=== PATIENT | female | born 1995 | race Caucasian/White ===

== ENCOUNTER 2018-05-08 12:01 | Emergency (ER) | payer BC, OTHER ==
--- OUTSIDE RECORDS SUMMARY | 2018-05-08 12:02 | XMS REPORT | Encounter Summary ---
:1995 Author Reason for Visit Medical Complaint Instructions 1. Exposure to Chlamydia trachomatis CT + NG RNA, PCR, unspecified specimen azithromycin 500 mg tablet Discussion Note: None recorded.Patient educational handouts: No information available. Plan of Care Reminders Provider Appointments None recorded. Lab CT + NG RNA, [facility] PCR, Unspecified Specimen 12/11/2017 Referral None recorded. Procedures None recorded. Surgeries None recorded. Imaging None recorded. Medications Name Start Date azithromycin 500 mg tablet 2 tablets (1 gm) x 1 po Medications Administered None recorded. Vitals Height Weight BMI Blood Pressure 5 ft 2 in 125 lbs 22.9 kg/m2 (1) 127/97 mm[Hg] (2) 136/88 mm[Hg] Lab Results None recorded. Allergies Code Code System Name Reaction Severity Status Onset NKDA Problems None recorded. Procedures None recorded. Vaccine List None recorded. Social History Smoking Status Former Smoker Past Encounters 12/11/2017 Exposure to Chlamydia Trachomatis DIVYA ReynagaC: [address] [place] [address], [address], [place] [address], Ph. History of Present Illness [id number] Reported By: Patient HPI: Location: ; no pain. Context: sexually active, possible/known exposure to STD, prior history of STDs; boyfriend only tested with chlamydia positive. gonorrhea was negative. Associated Symptoms: no fever/chills, no flank pain, no jaundice, no blood in the urine, no pain during urination, no vaginal discharge, no urgency, no blisters on genitals, no rash on genitals, no muscle aches, no headache Notes: was told by boyfriend yesterday that he had chlamydia via blood test. Pt wants to be tested. Hx of PID due to chlamydia. Pt did not want to be treated for gonorrhea now. Review of Systems Basic Reported By: Patient Constitutional: Constitutional: no fever Eyes: Eyes: no eye complaints Kqyv-Ucbu-Fcoun-Throat: Ears: no ear complaints. Nose: no nose/sinus problems. Mouth/Throat: no sore throat, no bleeding gums, no mouth complaints, no teeth problems Cardiovascular: Cardiovascular: no chest pain, no shortness of breath, no known heart murmur Respiratory: Respiratory: no cough, no wheezing, no shortness of breath Gastrointestinal: Gastrointestinal: no abdominal pain, no vomiting / diarrhea Genitourinary: Genitourinary: no urinary complaints, no discharge Musculoskeletal: Musculoskeletal: no muscle aches, no muscle weakness, no arthralgias/joint pain, no back pain Skin: Skin: no abnormal / changing mole, no jaundice, no rashes Neurologic: Neurologic: no loss of consciousness, no weakness, no numbness, no seizures, no dizziness, no headaches Physical Exam Adult Basic, Adult Female Complete Reported By: Patient Constitutional: General Appearance: healthy-appearing, well-nourished, well-developed. Level of Distress: NAD. Ambulation: ambulating normally Psychiatric: Mental Status: active and alert. Orientation: to time, to place, to person Eyes: Lids and Conjunctivae: non-injected, no discharge, no pallor. Pupils: PERRLA. Corneas: grossly intact. EOM: EOMI. Lens: clear. Sclerae: non-icteric. Vision: acuity grossly intact Ijl-Jlug-Zclpd-Throat: Ears: no lesions on external ear, no outer ear tenderness, EACs clear, TMs clear. Hearing: no hearing loss. Nose: no lesions on external nose, nares patent, no septal deviation, nasal passages clear, no sinus tenderness, no nasal discharge. Lips, Teeth, and Gums: no mouth or lip ulcers, no bleeding gums, normal dentition. Oropharynx: moist mucous membranes, no erythema, no exudates, tonsils not enlarged Neck: Neck: supple, trachea midline, no masses, FROM. Lymph Nodes: no cervical LAD, no supraclavicular LAD, no inguinal LAD. Thyroid: no enlargement, non-tender, no nodules Lungs: Respiratory effort: no dyspnea, no tachypnea, no use of accessory muscles, no intercostal retractions. Percussion: no dullness, flatness, or hyperresonance. Auscultation: breath sounds normal Cardiovascular: Heart Auscultation: RRR, no murmurs Musculoskeletal:: Joints, Bones, and Muscles: normal movement of all extremities Neurologic: Gait and Station: normal gait, normal station Skin: Inspection and palpation: no rash, no lesions, no ulcer, no abnormal nevi, no induration, no nodules, good turgor, no jaundice. Nails: normal Back: Thoracolumbar Appearance: normal curvature Abdomen: Bowel Sounds: normal. Inspection and Palpation: soft, non-distended, no tenderness, no guarding, no rebound tenderness, no masses, no CVA tenderness. Liver: non-tender, no hepatomegaly. Spleen: non-tender, no splenomegaly. Hernia: none palpable
--- OUTSIDE RECORDS SUMMARY | 2018-05-08 12:02 | XMS REPORT | Encounter Summary ---
[...] 12/11/2017 Exposure to Chlamydia Trachomatis DIVYA ReynagaC: [address] [place] [address], [address], [place] [address], Ph. History of Present Illness [id number] Reported By: Patient HPI: Location: ; no [...] no fever Eyes: Eyes: no eye complaints Ghkr-Gnxw-Nxcjk-Throat: Ears: no ear complaints. Nose: no nose/sinus [...] clear. Sclerae: non-icteric. Vision: acuity grossly intact Cgy-Vxkk-Mplxj-Throat: Ears: no lesions on external ear, no [...]
--- OUTSIDE RECORDS SUMMARY | 2018-05-08 12:02 | XMS REPORT | Continuity of Care Document ---
:1995 Author Organization Interface Problems Problem Status Onset Classification Date Comments Source Date Reported Exposure to 12/12/19 Diagnosis 12/11/2017 [facility] Chlamydia 18 trachomatis Medications Medication Details Route Status Patient Ordering Order Source Instructions Provider Date Azithromycin azithromycin Active [facility] 500 MG Oral 500 mg tablet Tablet 2 tablets (1 gm) x 1 po Allergies, Adverse Reactions, Alerts Substance Category Reaction Severity Reaction Status Date Comments Source type Reported Immunizations Immunization Date Given Site Status Last Updated Comments Source Results Order Results Value Reference Date Interpretation Comments Source Name Range Vital Signs Vital Sign Value Date Comments Source Diastolic (mm Hg) 88 12/11/2017 [facility] Height 62 12/11/2017 [facility] Systolic (mm Hg) 136 12/11/2017 [facility] Weight 125 12/11/2017 [facility] Encounters Location Location Encounter Encounter Reason Attending ADM DC Status Source Details Type Number For Provider Date Date Visit ADRI Dudley [id number] 12/11 [facility]o [id number] - PA-C: [id number] [facility] [address] [address] , Ph. ADRI Dudley [id number] 12/11 [facility] [id number] - PA-C: [id number] [facility] [address], [place] [address] , Ph. Procedures Procedure Code Date Perfomer Comments Source
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
== END 2018-05-08 13:25 | disposition home or self-care (01) ==
LOC: ER 12:01
DX: S16.1XXA Strain of muscle, fascia and tendon at neck level, initial encounter (principal); V49.40XA Driver injured in collision with unspecified motor vehicles in traffic accident, initial encounter
CPT/HCPCS: 70450; 72125; 99284

== ENCOUNTER 2019-01-25 11:29 | Emergency (ER) | payer BC, SELFPAY ==
[2019-01-25 12:26] LABS: Urine Bacteria <20 /HPF (<20); Urine Culture Reflex Order NOT NEEDED; Urine RBC NONE SEEN /HPF (NONE SEEN)
[2019-01-25 12:42] LABS: Urine Blood NEGATIVE (NEG); Urine Glucose NEGATIVE (NEG); Urine Protein NEGATIVE (NEG); Urine Specific Gravity 1.015 (1.005-1.030)
[2019-01-25] MEDS ORDERED: NA CHLORIDE 0.9% 1,000 ML ONE (12:44)
[2019-01-25 12:48] LABS: Absolute Lymphocytes (CBC) 1.3 K/uL (0.7-4.9); Basophils % 0.3 % (0-1.3); Hematocrit 42.2 % (36.0-45.0); Lymphocytes % 11.4 % (15.3-44.8); MPV 10.3 fL (7.6-11.3); RBC Red Blood Cell Count 4.88 M/uL (3.86-4.86)
[2019-01-25] MEDS ORDERED: ONDANSETRON 4 MG/2 ML VIAL ONE (12:53)
[2019-01-25 13:06] LABS: Bilirubin Direct 0.1 mg/dL (0-0.2); Bilirubin Total 0.6 mg/dL (0.2-1.0); Potassium 3.4 mmol/L (3.5-5.1)
[2019-01-25] MEDS ORDERED: KETOROLAC 30 MG/ML INJ ONE (13:57)
--- NOTE | 2019-01-25 15:22 | RAD REPORT ---
EXAM DESCRIPTION: CT - Abdomen Pelvis W Contrast - 01/25/2019 2:54 pm CLINICAL HISTORY: ABD PAIN COMPARISON: CT imaging December 2016 TECHNIQUE: Biphasic, helical CT imaging of the abdomen and pelvis was performed following 100 ml non -ionic IV contrast. Oral contrast was given. All CT scans are performed using dose optimization technique as appropriate and may include automated exposure control or mA/KV adjustment according to patient size. FINDINGS: No suspicious findings in the lung bases. The liver, spleen, and pancreas show no suspicious findings. Gallbladder and biliary tree are also wi thout suspicious finding. Both kidneys show lobulated contour. Areas of cortical thinning are present. There is some subtle het erogeneity of the enhancement pattern. This pattern is very similar to the December 2016 study. Findin gs are not convincing for pyelonephritis but can be correlated with UA findings. No urinary bladder w all thickening or enhancement. No solid mass of the parenchyma. No bladder calculus or other intralum inal filling defect. No adrenal abnormalities. No stomach or small bowel abnormality. The appendix is normal. Large stool volume distends the cecum, ascending colon and transverse colon. There is moderate stool volume in the left side colon. Colon w all thickening or mass not identified. Normal size uterus is present. IUD is in place appearing well positioned in the fundus. Left ovary is anteriorly positioned in the upper adnexae. There appears to be a 12 millimeter involuting cyst. Com plex cystic structure in the midline and right adnexa is present. This is not new but is slightly lar luke than the prior study. This is most likely a chronic right-sided hydrosalpinx. Emerson do not appear abnormally thickened or edematous. Pyosalpinx is possible but probably unlikely given the chronicity of this structure. Normal ovarian tissue is difficult to identify. Free fluid is present in the cul de sac within physiologic limits. No free air or pneumatosis. No hernia, mass or bulky lymphadenopathy. No suspicious bony findings. IMPRESSION: Patient has a chronic right-sided hydrosalpinx. Pyosalpinx is not excluded but felt to b e low unlikely given the chronicity of this structure and the absence of wall thickening or enhanceme nt. Involuting 12 millimeter left ovarian cyst. The left ovaries position anterior pelvis Appendix is normal. No acute GI process confirmed. Patient does have a large stool volume distending the right-side colon and transverse colon. Lobulated kidneys with a slightly heterogeneous enhancement pattern. This is not substantially differ ent from 2017. Pyelonephritis is not suspected without supporting clinical and laboratory findings. C ystitis is not suspected.
--- NOTE | 2019-01-25 16:02 | ER ---
Nurse's Notes [facility] Name: Yokasta Duncan Age: 23 yrs Sex: Female : 1995 Arrival Date: 01/25/2019 Time: 11:32 Bed 19 Private MD: Diagnosis: Hydrosalpynx;Follicular cyst of ovary;Lower abdominal pain, unspecified;Constipation Presentation: 01/25 11:57 Presenting complaint: Patient states: I began having lower abd pain last night. la1 Transition of care: patient was not received from another setting of care. Onset of symptoms was January 25, 2019. Risk Assessment: Do you want to hurt yourself or someone else? Patient reports no desire to harm self or others. Initial Sepsis Screen: Does the patient meet any 2 criteria? No. Patient's initial sepsis screen is negative. Does the patient have a suspected source of infection? No. Patient's initial sepsis screen is negative. Care prior to arrival: None. 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 - Social history:: Smoking status: Patient/guardian denies using tobacco. - Ebola Screening: : No symptoms or risks identified at this time. Screenin:40 Abuse screen: Denies threats or abuse. Nutritional screening: No deficits noted. em Tuberculosis screening: No symptoms or risk factors identified. Fall Risk None identified. Assessment: 12:20 General: Appears in no apparent distress. comfortable, Behavior is calm, cooperative, em Denies fever. Pain: Complains of pain in right lower quadrant and left lower quadrant Pain currently is 8 out of 10 on a pain scale. Pain began 1 day ago. Neuro: Level of Consciousness is awake, alert, obeys commands, Oriented to person, place, time, situation, Appropriate for age. Cardiovascular: Capillary refill < 3 seconds Patient's skin is warm and dry. Respiratory: Airway is patent Respiratory effort is even, unlabored, Respiratory pattern is regular, symmetrical. GI: Abdomen is flat, Bowel sounds present X 4 quads. Abd is soft X 4 quads Abdomen is tender to palpation in right lower quadrant and left lower quadrant Reports lower abdominal pain, Patient currently denies diarrhea, nausea, vomiting. : Denies burning with urination. Derm: Skin is intact, is healthy with good turgor, Skin is pink, warm \T\ dry. Musculoskeletal: Capillary refill < 3 seconds, Range of motion: intact in all extremities. 13:15 Reassessment: finished drinking PO contrast, tolerated well. em 14:00 Reassessment: Patient appears in no apparent distress at this time. Patient and/or em family updated on plan of care and expected duration. Pain level reassessed. Patient is alert, oriented x 3, equal unlabored respirations, skin warm/dry/pink. request something for pain, request not to have narcotics due to mothers addiction to them, educated pt that several dosages of medication would not cause pt to become addicted, provider notified. 14:31 Reassessment: rates pain 4/10 Patient states feeling better. Patient states symptoms em have improved. 15:20 Reassessment: Patient appears in no apparent distress at this time. Patient and/or em family updated on plan of care and expected duration. Pain level reassessed. Patient is alert, oriented x 3, equal unlabored respirations, skin warm/dry/pink. pending CT results, reports being hungry, advised not to eat or drink until after results. 16:14 Reassessment: Patient appears in no apparent distress at this time. Patient and/or em family updated on plan of care and expected duration. Pain level reassessed. Patient is alert, oriented x 3, equal unlabored respirations, skin warm/dry/pink. pending completion of IV fluids. Vital Signs: 11:58 BP 121 / 74; Pulse 102; Resp 16; Temp 99.6; Pulse Ox 100% on R/A; Weight 54.43 kg; la1 Height 5 ft. 2 in. (157.48 cm); 13:00 BP 133 / 82; Pulse 81; Resp 18; Pulse Ox 100% on R/A; Pain 8/10; em 14:27 BP 140 / 90; Pulse 96; Resp 16; Pulse Ox 100% on R/A; Pain 4/10; em 15:50 BP 126 / 79; Pulse 94; Resp 18; Temp 98.4(O); Pulse Ox 100% on R/A; Pain 5/10; em 16:48 BP 124 / 84; Pulse 94; Resp 18; Pulse Ox 100% on R/A; em 11:58 Body Mass Index 21.95 (54.43 kg, 157.48 cm) la1 ED Course: 11:32 Patient arrived in ED. rg4 11:42 [facility]C [facility] snw 11:42 Vik Soto MD is Attending Physician. snw 11:58 Triage completed. la1 11:58 Arm band placed on left wrist. la1 12:01 Douglas Patel LVN is Primary Nurse. em 12:20 Patient has correct armband on for positive identification. Placed in gown. Bed in low em position. Call light in reach. Adult w/ patient. Pulse ox on. NIBP on. 12:40 Initial lab(s) drawn, by me, sent to lab. Inserted saline lock: 22 gauge in right em antecubital area, using aseptic technique. Blood collected. 14:53 CT completed. Patient tolerated procedure well. Patient moved back from CT. mw3 16:46 No provider procedures requiring assistance completed. IV discontinued, intact, em bleeding controlled, No redness/swelling at site. Pressure dressing applied. Administered Medications: 12:49 Drug: NS 0.9% 1000 ml Route: IV; Rate: 100 ml/hr; Site: right antecubital; em 16:48 Follow up: IV Status: Completed infusion; IV Intake: 1000ml em 12:56 Drug: Zofran 4 mg Route: IVP; Site: right antecubital; tw2 13:15 Follow up: Response: No adverse reaction; Nausea is decreased em 14:07 Drug: TORadol - Ketorolac 15 mg Route: IVP; Site: right antecubital; tw2 14:27 Follow up: Response: No adverse reaction; Pain is decreased em 16:04 Not Given (Duplicate Order): Miralax 17 grams PO once; mix into 4-8 oz. of any em hot/cold/room temp. beverage and drink immediately 16:09 Drug: Miralax 17 grams Route: PO; em 16:46 Follow up: Response: No adverse reaction em Intake: 16:48 IV: 1000ml; Total: 1000ml. em Outcome: 16:02 Discharge ordered by . snw 16:47 Discharged to home ambulatory, with significant other. em 16:47 Condition: good 16:47 Discharge instructions given to patient, significant other, Instructed on discharge instructions, follow up and referral plans. medication usage, Demonstrated understanding of instructions, follow-up care, medications, Prescriptions given X 2. 16:50 Patient left the ED. em Signatures: Leidy Goetz, INSPECTOR AND HAND PACKAGER-C INSPECTOR AND HAND PACKAGER-Csnw Douglas Patel, HOOF AND SHOE INSPECTOR HOOF AND SHOE INSPECTOR em Getachew Titus RN RN la1 Alba Bellmay RN RN tw2 Jeny Maria rg4 Courtney Cotto mw3 Corrections: (The following items were deleted from the chart) 14:06 13:00 BP 133 / 82; Pulse 18bpm; Resp 18bpm; Pulse Ox 100% RA; Pain 8/10; em em
--- NOTE | 2019-01-25 16:03 | EDPHYS ---
Physician Documentation [facility] Name: Yokasta Duncan Age: 23 yrs Sex: Female : 1995 Arrival Date: 01/25/2019 Time: 11:32 Bed 19 Private MD: ED Physician Vik Soto HPI: 01/25 14:24 This 23 yrs old Female presents to ER via Ambulatory with complaints of snw Abdominal Pain. 14:24 The patient presents with abdominal pain in the lower abdomen, in the periumbilical snw area. Onset: The symptoms/episode began/occurred suddenly, last night, and became persistent. The symptoms do not radiate. Associated signs and symptoms: Pertinent positives: low grade temp. The symptoms are described as constant. Severity of pain: At its worst the pain was moderate. The patient has not experienced similar symptoms in the past. The patient has not recently seen a physician. 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 - Social history:: Smoking status: Patient/guardian denies using tobacco. - Ebola Screening: : No symptoms or risks identified at this time. ROS: 14:23 Constitutional: Negative for fever, chills, and weight loss, Eyes: Negative for injury, snw pain, redness, and discharge, ENT: Negative for injury, pain, and discharge, Neck: Negative for injury, pain, and swelling, Cardiovascular: Negative for chest pain, palpitations, and edema, Respiratory: Negative for shortness of breath, cough, wheezing, and pleuritic chest pain, Back: Negative for injury and pain, : Negative for injury, bleeding, discharge, and swelling, MS/Extremity: Negative for injury and deformity, Skin: Negative for injury, rash, and discoloration, Neuro: Negative for headache, weakness, numbness, tingling, and seizure. 14:23 Abdomen/GI: Positive for abdominal pain, Negative for nausea, vomiting, diarrhea, constipation. Exam: 14:23 Constitutional: This is a well developed, well nourished patient who is awake, alert, snw and in no acute distress. Head/Face: Normocephalic, atraumatic. Eyes: Pupils equal round and reactive to light, extra-ocular motions intact. Lids and lashes normal. Conjunctiva and sclera are non-icteric and not injected. Cornea within normal limits. Periorbital areas with no swelling, redness, or edema. ENT: Nares patent. No nasal discharge, no septal abnormalities noted. Tympanic membranes are normal and external auditory canals are clear. Oropharynx with no redness, swelling, or masses, exudates, or evidence of obstruction, uvula midline. Mucous membranes moist. Neck: Trachea midline, no thyromegaly or masses palpated, and no cervical lymphadenopathy. Supple, full range of motion without nuchal rigidity, or vertebral point tenderness. No Meningismus. Chest/axilla: Normal chest wall appearance and motion. Nontender with no deformity. No lesions are appreciated. Cardiovascular: Regular rate and rhythm with a normal S1 and S2. No gallops, murmurs, or rubs. Normal PMI, no JVD. No pulse deficits. Respiratory: Lungs have equal breath sounds bilaterally, clear to auscultation and percussion. No rales, rhonchi or wheezes noted. No increased work of breathing, no retractions or nasal flaring. Abdomen/GI: Soft, with normal bowel sounds. Amy umbilical and bilateral lower ext tenderness. No distension or tympany. No guarding or rebound. Back: No spinal tenderness. No costovertebral tenderness. Full range of motion. Skin: Warm, dry with normal turgor. Normal color with no rashes, no lesions, and no evidence of cellulitis. MS/ Extremity: Pulses equal, no cyanosis. Neurovascular intact. Full, normal range of motion. Neuro: Awake and alert, GCS 15, oriented to person, place, time, and situation. Cranial nerves II-XII grossly intact. Motor strength 5/5 in all extremities. Sensory grossly intact. Cerebellar exam normal. Normal gait. Psych: Awake, alert, with orientation to person, place and time. Behavior, mood, and affect are within normal limits. Vital Signs: 11:58 BP 121 / 74; Pulse 102; Resp 16; Temp 99.6; Pulse Ox 100% on R/A; Weight 54.43 kg; la1 Height 5 ft. 2 in. (157.48 cm); 13:00 BP 133 / 82; Pulse 81; Resp 18; Pulse Ox 100% on R/A; Pain 8/10; em 14:27 BP 140 / 90; Pulse 96; Resp 16; Pulse Ox 100% on R/A; Pain 4/10; em 15:50 BP 126 / 79; Pulse 94; Resp 18; Temp 98.4(O); Pulse Ox 100% on R/A; Pain 5/10; em 16:48 BP 124 / 84; Pulse 94; Resp 18; Pulse Ox 100% on R/A; em 11:58 Body Mass Index 21.95 (54.43 kg, 157.48 cm) la1 MDM: 12:03 Patient medically screened. alex 16:04 Data reviewed: vital signs, nurses notes. Data interpreted: Pulse oximetry: on room air snw is 100 %. Interpretation: normal. Counseling: I had a detailed discussion with the patient and/or guardian regarding: the historical points, exam findings, and any diagnostic results supporting the discharge/admit diagnosis. 01/25 11:43 Order name: Urine Culture replaced by [facility] 01/25 11:43 Order name: Urine Microscopic Only replaced by [facility] 01/25 12:12 Order name: Urine Dipstick--Ancillary (enter results) 01/25 12:12 Order name: Urine --Ancillary (enter results) 01/25 12:24 Order name: Basic Metabolic Panel replaced by [facility] 01/25 12:24 Order name: CBC with Diff replaced by [facility] 01/25 12:24 Order name: Creatinine for Radiology replaced by [facility] 01/25 12:24 Order name: Hepatic Function replaced by [facility] 01/25 12:24 Order name: Lipase replaced by [facility] 01/25 12:27 Order name: Urine Microscopic Only; Complete Time: 12:29 [facility] 01/25 12:46 Order name: Urine --Ancillary; Complete Time: 13:03 [facility] 01/25 12:46 Order name: Urine Dipstick-Ancillary; Complete Time: 13:03 [facility] 01/25 12:48 Order name: CBC with Automated Diff; Complete Time: 13:03 [facility] 01/25 13:02 Order name: Creatinine (Radiology Only); Complete Time: 13:03 [facility] 01/25 11:43 Order name: Urine Test (obtain specimen); Complete Time: 12:18 replaced by [facility] 01/25 11:43 Order name: Urine Dipstick-Ancillary (obtain specimen); Complete Time: 12:18 snw 01/25 12:24 Order name: IV Saline Lock; Complete Time: 12:45 snw 01/25 12:24 Order name: Labs collected and sent; Complete Time: 12:45 snw 01/25 12:24 Order name: CT Abd/Pelvis - PO and IV Contrast snw 01/25 13:07 Order name: Basic Metabolic Panel; Complete Time: 13:09 EDMS 01/25 13:07 Order name: Liver (Hepatic) Function; Complete Time: 13:09 EDMS 01/25 13:07 Order name: Lipase; Complete Time: 13:09 EDMS 01/25 15:39 Order name: CT; Complete Time: 15:57 EDMS 01/25 16:01 Order name: Misc. Order: increase ivf rate to bolus; Complete Time: 16:01 snw Administered Medications: 12:49 Drug: NS 0.9% 1000 ml Route: IV; Rate: 100 ml/hr; Site: right antecubital; em 16:48 Follow up: IV Status: Completed infusion; IV Intake: 1000ml em 12:56 Drug: Zofran 4 mg Route: IVP; Site: right antecubital; tw2 13:15 Follow up: Response: No adverse reaction; Nausea is decreased em 14:07 Drug: TORadol - Ketorolac 15 mg Route: IVP; Site: right antecubital; tw2 14:27 Follow up: Response: No adverse reaction; Pain is decreased em 16:04 Not Given (Duplicate Order): Miralax 17 grams PO once; mix into 4-8 oz. of any em hot/cold/room temp. beverage and drink immediately 16:09 Drug: Miralax 17 grams Route: PO; em 16:46 Follow up: Response: No adverse reaction em Disposition: 01/26 13:31 Co-signature as Attending Physician, Vik ROSE I agree with the assessment and alex plan of care. Disposition: 01/25/19 16:02 Discharged to Home. Impression: Hydrosalpynx, Follicular cyst of ovary, Lower abdominal pain, unspecified, Constipation. - Condition is Stable. - Discharge Instructions: Abdominal Pain, Adult, Constipation, Adult, High-Fiber Diet, Ovarian Cyst. - Prescriptions for Diclofenac Sodium 75 mg Oral Tablet Sustained Release - take 1 tablet by ORAL route 2 times per day; 30 tablet. Miralax 17 gram/dose Oral - take 1 packet by ORAL route once daily dilute powder in 8 ounces of water or juice; 1 box. - Medication Reconciliation Form, Thank You Letter, Antibiotic Education, Prescription Opioid Use form. - Follow up: Emergency Department; When: As needed; Reason: Worsening of condition. Follow up: Private Physician; When: 2 - 3 days; Reason: Recheck today's complaints, Continuance of care, Re-evaluation by your physician. Signatures: Dispatcher [employer] EDVik Cortes MD MD cha Therrien, Shelly, SECURITY ADMINISTRATOR-C SECURITY ADMINISTRATOR-Csnw Douglas Patel, RESEARCH AND DEVELOPMENT TECHNICIAN RESEARCH AND DEVELOPMENT TECHNICIAN Getachew Ryan RN RN la1 Alba Bellamy RN RN tw2 Corrections: (The following items were deleted from the chart) 01/25 16:50 16:02 01/25/2019 16:02 Discharged to Home. Impression: Hydrosalpynx; Follicular cyst of em ovary; Lower abdominal pain, unspecified; Constipation. Condition is Stable. Forms are Medication Reconciliation Form, Thank You Letter, Antibiotic Education, Prescription Opioid Use. Follow up: Emergency Department; When: As needed; Reason: Worsening of condition. Follow up: Private Physician; When: 2 - 3 days; Reason: Recheck today's complaints, Continuance of care, Re-evaluation by your physician. snw
[2019-01-25] MEDS ORDERED: POLYETHYL GLY 3350 17 GM/DOSE ONE (16:04)
[2019-01-25 19:06] VITALS: O2SAT 100
[2019-01-25 19:11] VITALS: TEMP 98.4
[2019-01-25 19:12] VITALS: BP 124/84
== END 2019-01-25 16:50 | disposition home or self-care (01) ==
LOC: ER 11:29
DX: N70.11 Chronic salpingitis (principal); N83.00 Follicular cyst of ovary, unspecified side; K59.00 Constipation, unspecified
CPT/HCPCS: 36415; 74177; 80048; 80076; 81003; 81015; 81025; 83690; 85025; 87086; 87088; 96361; 96374; 96375; 99284; J2405; J7030; Q9967

== ENCOUNTER 2020-07-03 12:12 | Emergency (ER) | payer OTHER, SELFPAY ==
--- OUTSIDE RECORDS SUMMARY | 2020-07-03 12:15 | XMS REPORT | Continuity of Care Document ---
:1995 Author Organization [facility] t Address [address] [place] [address] Care Team Providers Name Role Phone Awilda Zelaya NP Attending Clinician Ethan ROSE Attending Clinician Resident Italo Attending Clinician Unavailable Problems This patient has no known problems. Allergies, Adverse Reactions, Alerts This patient has no known allergies or adverse reactions. Medications This patient has no known medications. Procedures This patient has no known procedures. Encounters Start End Encounter Admission Attending Care Care Encounter Source Date/Time Date/Time Type Type Clinicians Facility Department ID 2020-06-29 2020-06-29 Emergency [place] [id number] 19:23:00 22:08:00 [place] C[facility] [id number] [place] [id number] [place] [id number] 2020-05-11 2020-05-11 [place] [id number] 08:00:00 23:59:00 Encounter [place]onna Cm [id number] [place] [id number] [place] [id number] 2020-04-29 2020-04-29 Office [facility] [id number] 09:15:49 10:55:25 Visit Resident [facility] [id number] [facility] [id number] Results This patient has no known results.
--- NOTE | 2020-07-03 13:45 | RAD REPORT ---
EXAM DESCRIPTION: RAD - Foot Right 3 View - 07/03/2020 1:22 pm CLINICAL HISTORY: PAIN, patient indicates pain in the lateral right foot near the fifth metatarsal b ase following running COMPARISON: FOOT W OBLIQUES dated 02/24/2010 FINDINGS: No fracture, dislocation or periosteal reaction. No acute or destructive bone process. No joint abnormality seen. No air or foreign body in the soft tissues. No plantar spur. IMPRESSION: Negative right foot examination.
--- NOTE | 2020-07-03 14:02 | EDPHYS ---
Physician Documentation [facility] Name: Yokasta Duncan Age: 24 yrs Sex: Female : 1995 Arrival Date: 07/03/2020 Time: 12:15 Bed 12 Private MD: BEBA Physician Vik Soto HPI: 07/03 14:34 This 24 yrs old Female presents to ER via Ambulatory with complaints of Foot kb Injury. 14:34 The patient presents with pain, that is acute. The complaints affect the right foot. kb Context: The problem was sustained outdoors, resulted from an unknown cause, the patient can fully bear weight, the patient is able to ambulate. Onset: The symptoms/episode began/occurred 3 day(s) ago. Modifying factors: The symptoms are alleviated by nothing, the symptoms are aggravated by weight bearing. Associated signs and symptoms: The patient has no apparent associated signs or symptoms. Severity of symptoms: At their worst the symptoms were moderate, in the emergency department the symptoms are unchanged. The patient has not experienced similar symptoms in the past. The patient has not recently seen a physician. Pt reports pain in right foot that started after going for a walk and doing sprints 3 days ago. Denies injury or trauma. States the pain has been constant since started. 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 - Social history:: Smoking status: Patient denies any tobacco usage or history of. ROS: 14:31 Constitutional: Negative for fever, chills, and weight loss, Respiratory: Negative for kb shortness of breath, cough, wheezing, and pleuritic chest pain, Skin: Negative for injury, rash, and discoloration, Neuro: Negative for headache, weakness, numbness, tingling, and seizure. 14:31 MS/extremity: Positive for pain, of the right foot. Exam: 14:31 Constitutional: This is a well developed, well nourished patient who is awake, alert, kb and in no acute distress. Head/Face: Normocephalic, atraumatic. Respiratory: Respirations even and unlabored. No increased work of breathing, no retractions or nasal flaring. Skin: Warm, dry with normal turgor. Normal color. MS/ Extremity: Pulses equal, no cyanosis. Neurovascular intact. Full, normal range of motion. Neuro: Awake and alert, GCS 15, oriented to person, place, time, and situation. Moves all extremities. Normal gait. Vital Signs: 12:21 BP 120 / 91; Pulse 91; Resp 16 S; Temp 97.1(TE); Pulse Ox 99% on R/A; Weight 54.43 kg ca1 (R); Height 5 ft. 2 in. (157.48 cm) (R); Pain 7/10; 14:05 BP 112 / 82; Pulse 89; Resp 16 S; Pulse Ox 100% on R/A; ca1 12:21 Body Mass Index 21.95 (54.43 kg, 157.48 cm) ca1 MDM: 13:29 Patient medically screened. kb 14:33 Data reviewed: vital signs, nurses notes. Data interpreted: Pulse oximetry: on room air kb is 100 %. Interpretation: normal. Counseling: I had a detailed discussion with the patient and/or guardian regarding: the historical points, exam findings, and any diagnostic results supporting the discharge/admit diagnosis, radiology results, the need for outpatient follow up, a family practitioner, to return to the emergency department if symptoms worsen or persist or if there are any questions or concerns that arise at home. 07/03 12:54 Order name: Foot Right 3 View XRAY; Complete Time: 13:56 kb Administered Medications: No medications were administered Disposition: 07/04 08:30 Co-signature as Attending Physician, Vik Soto MD I agree with the assessment and alex plan of care. Disposition: 07/03/20 14:02 Discharged to Home. Impression: Pain in right foot. - Condition is Stable. - Discharge Instructions: Foot Sprain, Musculoskeletal Pain. - Medication Reconciliation Form, Thank You Letter, Antibiotic Education, Prescription Opioid Use form. - Follow up: Emergency Department; When: As needed; Reason: Worsening of condition. Follow up: Private Physician; When: 2 - 3 days; Reason: Recheck today's complaints, Continuance of care, Re-evaluation by your physician. Signatures: Dispatcher [employer] Christina Eid, LEAD PROJECT MANAGER-C LEAD PROJECT MANAGER-Vik Polanco MD MD cha Acob, Cheryl, RN RN ca1 Corrections: (The following items were deleted from the chart) 07/03 14:05 14:02 07/03/2020 14:02 Discharged to Home. Impression: Pain in right foot. Condition is ca1 Stable. Forms are Medication Reconciliation Form, Thank You Letter, Antibiotic Education, Prescription Opioid Use. Follow up: Emergency Department; When: As needed; Reason: Worsening of condition. Follow up: Private Physician; When: 2 - 3 days; Reason: Recheck today's complaints, Continuance of care, Re-evaluation by your physician. kb
--- NOTE | 2020-07-03 14:02 | ER ---
Nurse's Notes [facility] Name: Yokasta Duncan Age: 24 yrs Sex: Female : 1995 Arrival Date: 07/03/2020 Time: 12:15 Bed 12 Private MD: Diagnosis: Pain in right foot Presentation: 07/03 12:21 Chief complaint: Patient states: messed up my R foot 3 days ago, I don't know what I ca1 did to it. I went out for a walk then did 2 sprints, I thought it was just a cramp but it hasn't gone away. It hurts to walk and put pressure on it. Coronavirus screen: Client denies travel out of the [place] in the last 14 days. At this time, the client does not indicate any symptoms associated with coronavirus-19. Ebola Screen: Patient negative for fever greater than or equal to 101.5 degrees Fahrenheit, and additional compatible Ebola Virus Disease symptoms Patient denies exposure to infectious person. Patient denies travel to an Ebola-affected area in the 21 days before illness onset. No symptoms or risks identified at this time. Initial Sepsis Screen: Does the patient meet any 2 criteria? No. Patient's initial sepsis screen is negative. Does the patient have a suspected source of infection? No. Patient's initial sepsis screen is negative. Risk Assessment: Do you want to hurt yourself or someone else? Patient reports no desire to harm self or others. Onset of symptoms was July 03, 2020. 12:21 Method Of Arrival: Ambulatory ca1 12:21 Acuity: ASHLY 4 ca1 Triage Assessment: 13:35 Injury Description: none. 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 - Social history:: Smoking status: Patient denies any tobacco usage or history of. Screenin:34 Abuse screen: Denies threats or abuse. Denies injuries from another. Nutritional ca1 screening: No deficits noted. Tuberculosis screening: No symptoms or risk factors identified. Fall Risk None identified. Assessment: 13:34 General: Appears in no apparent distress. comfortable, Behavior is calm, cooperative, ca1 appropriate for age. Pain: Complains of pain in right foot Pain currently is 7 out of 10 on a pain scale. Pain began 2-3 days ago. Pain: Aggravated by weight bearing. Neuro: Level of Consciousness is awake, alert, obeys commands, Oriented to person, place, time, situation. Derm: Skin is intact, is healthy with good turgor, Skin is pink, warm \T\ dry. Musculoskeletal: Circulation, motion, and sensation intact. Capillary refill < 3 seconds. Vital Signs: 12:21 BP 120 / 91; Pulse 91; Resp 16 S; Temp 97.1(TE); Pulse Ox 99% on R/A; Weight 54.43 kg ca1 (R); Height 5 ft. 2 in. (157.48 cm) (R); Pain 7/10; 14:05 BP 112 / 82; Pulse 89; Resp 16 S; Pulse Ox 100% on R/A; ca1 12:21 Body Mass Index 21.95 (54.43 kg, 157.48 cm) ca1 ED Course: 12:15 Patient arrived in ED. as 12:24 Triage completed. ca1 12:24 Arm band placed on right wrist. ca1 13:07 [facility] Menendez [facility]C [facility] kb 13:07 Vik Soto MD is Attending Physician. kb 13:22 Foot Right 3 View XRAY In Process Unspecified. EDMS 13:34 Dania Galvin, RN is Primary Nurse. ca1 13:34 Patient has correct armband on for positive identification. Call light in reach. Pulse ca1 ox on. NIBP on. 13:35 No provider procedures requiring assistance completed. Patient did not have IV access ca1 during this emergency room visit. Administered Medications: No medications were administered Outcome: 14:02 Discharge ordered by . kb 14:05 Discharged to home ambulatory. ca1 14:05 Condition: stable 14:05 Discharge instructions given to patient, Instructed on discharge instructions, follow up and referral plans. Demonstrated understanding of instructions, follow-up care. 14:05 Patient left the ED. ca1 Signatures: Dispatcher [employer] EDMS Christina Menendez FNP-C FNP-Makenna Tamayo as Dania Galvin, RN RN ca1
[2020-07-03 14:12] VITALS: TEMP 97.1
[2020-07-03 14:13] VITALS: BP 112/82; O2SAT 100
== END 2020-07-03 14:05 | disposition home or self-care (01) ==
LOC: ER 12:12
DX: M79.671 Pain in right foot (principal)
CPT/HCPCS: 99283

== ENCOUNTER 2021-01-18 22:31 | Emergency (ER) | payer OTHER ==
[2021-01-18] MEDS ORDERED: NA CHLORIDE 0.9% 1,000 ML ONE (22:58)
[2021-01-18] MEDS ORDERED: ONDANSETRON 4 MG/2 ML VIAL ONE (22:58)
[2021-01-18 23:54] LABS: Albumin 4.1 g/dL (3.4-5.0); Bilirubin Direct 0.2 mg/dL (0-0.2); Bilirubin Total 0.6 mg/dL (0.2-1.0); Potassium 3.6 mmol/L (3.5-5.1); Protein, Total 7.9 g/dL (6.4-8.2)
[2021-01-19 00:17] LABS: Absolute Lymphocytes (CBC) 0.5 K/uL (0.7-4.9); Basophils % 0.2 % (0-1.3); Hematocrit 40.7 % (36.0-45.0); Lymphocytes % 6.7 % (15.3-44.8); MPV 10.1 fL (7.6-11.3); RBC Red Blood Cell Count 4.74 M/uL (3.86-4.86)
--- NOTE | 2021-01-19 00:45 | ER ---
Nurse's Notes [facility] Name: Yokasta Duncan Age: 25 yrs Sex: Female : 1995 Arrival Date: 01/18/2021 Time: 22:36 Bed 10 Private MD: Diagnosis: Nausea with vomiting, unspecified Presentation: 01/18 22:45 Chief complaint: Patient states: "I think I may have ate something bad yesterday." ld1 Reports vomiting, diarrhea, and ABD pain. Coronavirus screen: Client presents with at least one sign or symptom that may indicate coronavirus-19. Standard/surgical mask placed on the client. Ebola Screen: No symptoms or risks identified at this time. Initial Sepsis Screen: Does the patient meet any 2 criteria? No. Patient's initial sepsis screen is negative. Does the patient have a suspected source of infection? No. Patient's initial sepsis screen is negative. Risk Assessment: Do you want to hurt yourself or someone else? Patient reports no desire to harm self or others. Onset of symptoms was January 18, 2021. 22:45 Method Of Arrival: Ambulatory ld1 22:45 Acuity: ASHLY 3 ld1 Triage Assessment: 22:47 General: Appears in no apparent distress. comfortable, Behavior is calm, cooperative, ld1 appropriate for age. Pain: Denies pain. Neuro: Level of Consciousness is awake, alert, obeys commands, Oriented to person, place, time, situation. Cardiovascular: Capillary refill < 3 seconds Patient's skin is warm and dry. Respiratory: Airway is patent Respiratory effort is even, unlabored, Respiratory pattern is regular, symmetrical. GI: Abdomen is flat, non-distended, Reports upper abdominal pain, diarrhea, intolerance of fluids, intolerance of food, nausea, vomiting. 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 - Social history:: Smoking status: Patient denies any tobacco usage or history of. Patient/guardian denies using alcohol. Screenin:12 Abuse screen: Denies threats or abuse. Nutritional screening: No deficits noted. fu Tuberculosis screening: No symptoms or risk factors identified. Fall Risk None identified. Assessment: 23:10 General: Appears in no apparent distress. Behavior is calm, cooperative, appropriate fu for age, Denies fever, chills. Pain: Denies pain. Neuro: Level of Consciousness is awake, alert, obeys commands, Oriented to person, place, time, situation, Moves all extremities. Gait is steady, Speech is normal, Facial symmetry appears normal. Cardiovascular: No deficits noted. Respiratory: No deficits noted. GI: Reports diarrhea, nausea, vomiting. GI: Last BM was January 18, 2021. Abd is soft. : No signs and/or symptoms were reported regarding the genitourinary system. EENT: No signs and/or symptoms were reported regarding the EENT system. Derm: Skin is intact, Skin is dry. 01/19 00:00 Reassessment: Given with 1 cup of water, tolerated well by patient denies abdominal fu pain, nausea and vomiting. 00:16 Reassessment: No changes from previously documented assessment. ja3 Vital Signs: 01/18 22:45 BP 112 / 79; Pulse 80; Resp 18; Temp 97.3(TE); Pulse Ox 98% on R/A; Weight 54.43 kg; ld1 Height 5 ft. 2 in. (157.48 cm); Pain 0/10; 23:00 BP 118 / 81; Pulse 73; Resp 16; Pulse Ox 100% ; Pain 0/10; fu 23:16 BP 111 / 72; Pulse 80; Resp 14; Temp 98.4; Pulse Ox 100% on R/A; Pain 5/10; fu 01/19 00:55 BP 118 / 78; Pulse 83; Resp 15; Temp 98.4; Pulse Ox 99% ; Pain 0/10; ja3 01/18 22:45 Body Mass Index 21.95 (54.43 kg, 157.48 cm) ld1 ED Course: 01/18 22:36 Patient arrived in ED. ja2 22:44 Christina Menendez [facility]NP-C [facility] kb 22:44 Quintin Burton MD is Attending Physician. kb 22:47 Triage completed. ld1 22:47 Arm band placed on left wrist. ld1 22:50 Lev Peng, MYESHA is Primary Nurse. fu 23:00 Inserted saline lock: 22 gauge in right antecubital area, using aseptic technique. fu Blood collected. 23:08 CBC with Diff Sent. fu 23:08 Basic Metabolic Panel Sent. fu 01/19 00:11 Primary Nurse role handed off by Lev Peng RN ja3 00:11 Max Fallon, MYESHA is Primary Nurse. ja3 00:43 Bed in low position. Call light in reach. Pulse ox on. NIBP on. Warm blanket given. fu 01:06 No provider procedures requiring assistance completed. IV discontinued, bleeding ja3 controlled, No redness/swelling at site. Pressure dressing applied. Administered Medications: 01/18 23:08 Drug: NS 0.9% 1000 ml Route: IV; Rate: 1000 ml; Site: right antecubital; fu 01/19 00:42 Follow up: IV Status: Completed infusion; IV Intake: 1000ml fu 01/18 23:09 Drug: Zofran (Ondansetron) 4 mg Route: IVP; Site: right antecubital; fu 01/19 00:12 Follow up: Response: No adverse reaction ja3 Intake: 00:42 IV: 1000ml; Total: 1000ml. fu Outcome: 00:43 Discharge ordered by . kb 01:06 Discharged to home ambulatory. ja3 01:06 Condition: good 01:06 Discharge instructions given to patient, Instructed on discharge instructions, follow up and referral plans. Demonstrated understanding of Prescriptions given X 2. 01:07 Patient left the ED. ja3 Signatures: Christina Menendez FNP-Adriel PONCE-Lev Anton, MYESHA RN Brenna Fernández RN RN ld1 Brunilda Coy ja2 Max Fallon, MYESHA RN ja3 Corrections: (The following items were deleted from the chart) 01/18 23:16 23:13 BP 118 / 81; Pulse 73bpm; Resp 16bpm; Pulse Ox 100%; Pain 0/10; fu fu
--- NOTE | 2021-01-19 00:45 | EDPHYS ---
Physician Documentation [facility] Name: Yokasta Duncan Age: 25 yrs Sex: Female : 1995 Arrival Date: 01/18/2021 Time: 22:36 Bed 10 Private MD: ED Physician Quintin Burton HPI: 01/18 23:35 This 25 yrs old Female presents to ER via Ambulatory with complaints of kb Vomiting. 23:35 The patient presents to the emergency department with nausea, vomiting, diarrhea. kb Onset: The symptoms/episode began/occurred last night. Possible causes: unknown. The symptoms are aggravated by nothing. The symptoms are alleviated by nothing. Associated signs and symptoms: Pertinent positives: diarrhea, nausea, vomiting. Severity of symptoms: At their worst the symptoms were moderate in the emergency department the symptoms are unchanged. The patient has not experienced similar symptoms in the past. The patient has not recently seen a physician. Pt reports diarrhea last night, nausea and vomiting today. 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 - Social history:: Smoking status: Patient denies any tobacco usage or history of. Patient/guardian denies using alcohol. ROS: 23:35 Constitutional: Negative for fever, chills, and weight loss. kb 23:35 Abdomen/GI: Positive for nausea, vomiting, and diarrhea. 23:35 All other systems are negative. Exam: 23:35 Constitutional: This is a well developed, well nourished patient who is awake, alert, kb and in no acute distress. Head/Face: Normocephalic, atraumatic. ENT: Moist Mucous membranes Respiratory: Respirations even and unlabored. No increased work of breathing, no retractions or nasal flaring. Abdomen/GI: Soft, non-tender. No distention Skin: Warm, dry with normal turgor. Normal color. MS/ Extremity: Pulses equal, no cyanosis. Neurovascular intact. Full, normal range of motion. Neuro: Awake and alert, GCS 15, oriented to person, place, time, and situation. Moves all extremities. Normal gait. Psych: Awake, alert, with orientation to person, place and time. Behavior, mood, and affect are within normal limits. Vital Signs: 22:45 BP 112 / 79; Pulse 80; Resp 18; Temp 97.3(TE); Pulse Ox 98% on R/A; Weight 54.43 kg; ld1 Height 5 ft. 2 in. (157.48 cm); Pain 0/10; 23:00 BP 118 / 81; Pulse 73; Resp 16; Pulse Ox 100% ; Pain 0/10; fu 23:16 BP 111 / 72; Pulse 80; Resp 14; Temp 98.4; Pulse Ox 100% on R/A; Pain 5/10; fu 01/19 00:55 BP 118 / 78; Pulse 83; Resp 15; Temp 98.4; Pulse Ox 99% ; Pain 0/10; ja3 01/18 22:45 Body Mass Index 21.95 (54.43 kg, 157.48 cm) ld1 MDM: 01/18 22:44 Patient medically screened. kb 23:34 Data reviewed: vital signs, nurses notes. Data interpreted: Pulse oximetry: on room air kb is 100 %. Interpretation: normal. 01/19 00:43 Counseling: I had a detailed discussion with the patient and/or guardian regarding: the kb historical points, exam findings, and any diagnostic results supporting the discharge/admit diagnosis, lab results, the need for outpatient follow up, a family practitioner, to return to the emergency department if symptoms worsen or persist or if there are any questions or concerns that arise at home. 01/18 22:47 Order name: Basic Metabolic Panel kb 01/18 22:47 Order name: CBC with Diff kb 01/18 22:47 Order name: Hepatic Function; Complete Time: 23:55 kb 01/18 22:47 Order name: Lipase; Complete Time: 23:55 kb 01/18 22:47 Order name: Basic Metabolic Panel; Complete Time: 23:55 EDMS 01/18 22:47 Order name: CBC with Automated Diff; Complete Time: 01:06 EDMS 01/18 22:47 Order name: IV Saline Lock; Complete Time: 23:08 kb 01/18 22:47 Order name: Labs collected and sent; Complete Time: 23:08 kb 01/18 23:55 Order name: PO challenge; Complete Time: 00:13 kb 01/19 00:17 Order name: Manual Differential; Complete Time: 01:06 EDMS Administered Medications: 01/18 23:08 Drug: NS 0.9% 1000 ml Route: IV; Rate: 1000 ml; Site: right antecubital; fu 01/19 00:42 Follow up: IV Status: Completed infusion; IV Intake: 1000ml fu 01/18 23:09 Drug: Zofran (Ondansetron) 4 mg Route: IVP; Site: right antecubital; fu 01/19 00:12 Follow up: Response: No adverse reaction ja3 Disposition: 05:39 Co-signature as Attending Physician, Quintin Burton MD. [email or web address] Disposition Summary: 01/19/21 00:43 Discharge Ordered Location: Home kb Condition: Stable kb Diagnosis - Nausea with vomiting, unspecified kb Followup: kb - With: Emergency Department - When: As needed - Reason: Worsening of condition Followup: kb - With: Private Physician - When: 2 - 3 days - Reason: Recheck today's complaints, Continuance of care, Re-evaluation by your physician Discharge Instructions: - Discharge Summary Sheet kb - Viral Gastroenteritis, Adult, [id number] kb Forms: - Medication Reconciliation Form kb - Thank You Letter kb - Antibiotic Education kb - Prescription Opioid Use kb Prescriptions: - Zofran 4 mg Oral Tablet - take 1 tablet by ORAL route every 6 hours As needed; 20 tablet; Refills: 0, kb Product Selection Permitted - dicyclomine 20 mg Oral Tablet - take 1 tablet by ORAL route every 6 hours As needed; 20 tablet; Refills: 0, kb Product Selection Permitted Signatures: Dispatcher [employer] EDMS Christina Menendez FNP-C FNP-Ckb Umadhay, Felix RN Quintin Orr MD MD 7 Brenna Fernández RN RN 1 Max Fallon RN ja3
[2021-01-19 01:00] LABS: Blood Morphology Comment NOT SEEN (NOT SEEN); Platelet Estimate ADEQ
[2021-01-19 01:16] VITALS: TEMP 98.4
[2021-01-19 01:18] VITALS: BP 118/78; O2SAT 99
--- OUTSIDE RECORDS SUMMARY | 2021-01-29 08:35 | XMS REPORT | Continuity of Care Document ---
:1995 Author Organization [facility] t Address [address] [place] [address] Care Team Providers Name Role Phone Pcp, Does Not Have A Primary Care Physician Devon ROSE Attending Clinician Doctor Unassigned, Name Attending Clinician Unavailable EDUARDO Attending Clinician Unavailable Ayana KLEINP, F Attending Clinician FRANCA Attending Clinician Unavailable Garcia MORTGAGE LOAN ORIGINATOR, G Attending Clinician Franca ROSE Attending Clinician Italo, Resident Attending Clinician Unavailable Payers Payer Name Policy Type Policy Number Effective Date Expiration Date Rachelle alba [facility] [id number] 2020 00:00:00 Problems Condition Condition Condition Status Onset Resolution Last Treating Co mments Source Name Details Category Date Date Treatment Clinician Date UTI UTI Disease Active Univers (urinary (urinary 4-28 ity of tract tract 00:00: [place] infection) infection) 00 Me dical due to due to Branch Enterococc Enterococc us us Allergies, Adverse Reactions, Alerts Allergy Allergy Status Severity Reaction(s) Onset Inactive Treating Comm ents Source Name Type Date Date Clinician NO KNOWN Drug Active Univers ALLERGIE Class ity of S [facility] Social History Social Habit Start Date Stop Date Quantity Comments Source Exposure to Not sure University SARS-CoV-2 [place] [facility] (event) Branch Alcohol intake 2020-11-22 2020-11-22 Ex-drinker [facility] 00:00:00 00:00:00 (finding) [facility] Tobacco use and 2020-04-29 2020-04-29 Never used Universit y of exposure 00:00:00 00:00:00 [facility] Sex Ass[birth year] At [birth year] Universit y of 00:00:00 00:00:00 [facility] Smoking Status Start Date Stop Date Source Never smoker [facility] Medications Ordered Filled Start Stop Current Ordering Indication Dosage Frequency Signature Comments Components Source Medication Medication Date Date Medication? Clinician (SIG) Name Name ciprofloxac 2020-03 Yes [id number] 500mg Take 1 Univers in HCl 500 0-01 tablet by ity of mg tablet 00:00: mouth 2 [place] 00 (two) Medical times Branch daily. ondansetron 2020-03 Yes [id number] 4mg Take 1 Univers 4 mg 0-01 tablet by ity of disintegrat 00:00: mouth [place] ing tablet 00 every 4 Medica l (four) Branch hours as needed for Nausea and Vomiting (N/V). NaCl 0.9% 2020- No 1000mL at 999 Uni vers (NS) bolus 11-19 09-03 mL/hr, ity of infusion 16:30: 17:06 1,000 mL, [place] as 1,000 mL 00 :00 IV Medical Piggyback, Branch ONCE, 1 dose, 11/19/20 at 1130, STAT NaCl 0.9% 2020- No 1000mL at 999 Uni vers (NS) bolus 9 09-03 mL/hr, ity of infusion 16:30: 17:06 1,000 mL, [place] as 1,000 mL 00 :00 IV Medical Piggyback, Branch ONCE, 1 dose, 11/19/20 at 1130, STAT nitrofurant Yes [id number] Take 20 ml Univers oin 25 mg/5 9-03 (100mg) ity o f mL 00:00: twice [place] suspension 00 daily x 7 Medi mindy days Branch nitrofurant Yes [id number] Take 20 ml Univers oin 25 mg/5 9-03 (100mg) ity o f mL 00:00: twice [place] suspension 00 daily x 7 Medi mindy days Branch albuterol Yes [id number] 2{puff} Inhale 2 Univers 90 4-13 Puffs ity of mcg/actuati 00:00: every 4 [place] as on inhaler 00 (four) Medical hours as Branch needed for Wheezing or Shortness of Breath. albuterol Yes [id number] 2{puff} Inhale 2 Univers 90 4-13 Puffs ity of mcg/actuati 00:00: every 4 [place] as on inhaler 00 (four) Medical hours as Branch needed for Wheezing or Shortness of Breath. albuterol Yes [id number] 2{puff} Inhale 2 Univers 90 4-13 Puffs ity of mcg/actuati 00:00: every 4 [place] as on inhaler 00 (four) Medical hours as Branch needed for Wheezing or Shortness of Breath. albuterol Yes [id number] 2{puff} Inhale 2 Univers 90 4-13 Puffs ity of mcg/actuati 00:00: every 4 [place] as on inhaler 00 (four) Medical hours as Branch needed for Wheezing or Shortness of Breath. albuterol Yes [id number] 2{puff} Inhale 2 Univers 90 4-13 Puffs ity of mcg/actuati 00:00: every 4 [place] as on inhaler 00 (four) Medical hours as Branch needed for Wheezing or Shortness of Breath. cefdinir 202- No [id number] 300mg Take 6 mL Univers 250 mg/5 mL 06-29- by mouth ity of suspension 00:00: 04:59 daily for [place] 00 :00 7 days. Medical Branch No known No Univers medications ity of [facility] No known No Univers medications ity of [facility] No known No Univers medications ity [facility] No known No [facility] Vital Signs Vital Name Observation Time Observation Value Comments Source Systolic blood 2020-12-17 15:25:28 123 mm[Hg] Univer sity [facility] Diastolic blood 2020-12-17 15:25:28 87 mm[facility]Hg] [facility] 2020-12-17 15:25:28 91 /min [facility]i ty [facility] [place] [facility] Respiratory rate 2020-12-17 15:25:28 16 /min Univ ersity [facility] [place] [facility] Oxygen saturation in 2020-12-17 15:25:28 100 /min University of Arterial blood by [facility] Pulse oximetry Branch Body temperature 2020-12-17 13:17:00 37.5 Sandra Univ ers[facility] [place] [facility] Body height 2020-12-17 13:17:00 157.5 cm [facility] [place] [facility] Body weight 2020-12-17 13:17:00 54.432 kg [facility] [place] [facility] BMI 2020-12-17 13:17:00 21.95 kg/m2 [facility] [place] [facility] Systolic blood 2020-11-19 17:00:00 114 mm[Hg] Univer sity of pressure [place] [facility] Diastolic blood 2020-11-19 17:00:00 83 mm[Hg] Unive rsity of pressure [place] [facility] Heart rate 2020-11-19 17:00:00 67 /min [facility]i ty [facility] [place] [facility] Respiratory rate 2020-11-19 17:00:00 16 /min Univ ers[facility] [place] [facility] Oxygen saturation in 2020-11-19 17:00:00 99 /min University of Arterial blood by [facility] Pulse oximetry Branch Body temperature 2020-11-19 15:16:00 36.94 Sandra Univ [facility] [place] [facility] Body weight 2020-11-19 15:16:00 54.432 kg [facility] [place] [facility] BMI 2020-11-19 15:16:00 21.95 kg/m2 [facility] [place] [facility] Systolic blood 2020-06-30 03:01:44 120 mm[Hg] Univer sity of [facility] [place] [facility] Diastolic blood 2020-06-30 03:01:44 85 mm[Hg] Unive rsity of [facility] [place] [facility] Heart rate 2020-06-30 03:01:44 99 /min [facility] [place] [facility] Body temperature 2020-06-30 03:01:44 36.89 Sandra Univ [facility] [place] [facility] Respiratory rate 2020-06-30 03:01:44 18 /min Univ [facility] [place] [facility] Oxygen saturation in 2020-06-30 03:01:44 100 /min University of Arterial blood by [place] [facility] Pulse oximetry Branch Body weight 2020-06-30 00:22:00 56.7 kg [facility] [place] [facility] BMI 2020-06-30 00:22:00 22.86 kg/m2 [facility] [place] [facility] Systolic blood 2020-06-30 03:01:44 120 mm[Hg] Univer sity of [facility] [place] [facility] Diastolic blood 2020-06-30 03:01:44 85 mm[Hg] Unive rsity of [facility] Heart rate 2020-06-30 03:01:44 99 /min [facility]i [facility] [place] [facility] Body temperature 2020-06-30 03:01:44 36.89 Sandra Univ ersity of [place] [facility] Branch Respiratory rate 2020-06-30 03:01:44 18 /min Univ ersity of [facility] Oxygen saturation in 2020-06-30 03:01:44 100 /min University of Arterial blood by [facility] Pulse oximetry Branch Body weight 2020-06-30 00:22:00 56.7 kg [facility] [place] [facility] BMI 2020-06-30 00:22:00 22.86 kg/m2 [facility] [place] [facility] Systolic blood 2020-04-29 15:57:00 130 mm[Hg] Univer sity of [facility] [place] [facility] Diastolic blood 2020-04-29 15:57:00 78 mm[Hg] Unive rsity of [facility] [place] [facility] Body height 2020-04-29 15:57:00 157.5 cm [facility] [place] [facility] Body weight 2020-04-29 15:57:00 56.048 kg [facility] [place] [facility] BMI 2020-04-29 15:57:00 22.60 kg/m2 [facility] [place] [facility] Systolic blood 2020-04-29 15:57:00 130 mm[Hg] Univer sity of [facility] [place] [facility] Diastolic blood 2020-04-29 15:57:00 78 mm[Hg] Unive rsity of [facility] [place] [facility] Body height 2020-04-29 15:57:00 157.5 cm [facility] [place] [facility] Body weight 2020-04-29 15:57:00 56.048 kg [facility] [place] [facility] BMI 2020-04-29 15:57:00 22.60 kg/m2 [facility] Procedures Procedure Date / Time Performing Clinician Source Performed CT ABDOMEN PELVIS WO 2020-12-17 14:11:11 Johnson Osorio [facility] CONTRAST [facility] COMP. METABOLIC PANEL 2020-12-17 13:49:00 Johnson Osorio [facility] ([id number]) [facility] CBC WITH DIFF 2020-12-17 13:49:[address] [facility] PROTHROMBIN TIME / INR 2020-12-17 13:49:00 Johnson Osorio [facility] ACTIVATED PARTIAL 2020-12-17 13:49:00 Johnson Osorio [facility] 2020-12-17 13:32:[address] [facility] POCT TEST 2020-12-17 13:32:00 Johnson Osorio [facility] CONSENT/REFUSAL FOR 2020-12-17 13:13:38 [facility] COMP. METABOLIC PANEL 2020-11-19 15:42:00 [id number] TOTAL BETA HCG ASSAY 2020-11-19 15:42:00 Kasey Piña [facility] CBC WITH DIFF 2020-11-19 15:41:00 Kasey Piña [facility] URINALYSIS 2020-11-19 15:41:00 Kasey Piña [facility] POCT TEST 2020-11-19 15:30:00 Johnson Osorio [facility] CONSENT/REFUSAL FOR 2020-11-19 15:06:44 Doctor Un[facility]igned[facility] Name [facility] URINALYSIS 2020-06-30 01:46:[address] [facility] RAPID STREP SCREEN FOR 2020-06-30 01:46:00 Rachel Herrera [facility] A [facility] POCT TEST 2020-06-30 01:46:00 Rachel Herrera [facility] COVID-19 (ID NOW RAPID 2020-06-30 01:46:00 Rachel Herrera [facility] TESTING) [facility] CONSENT/REFUSAL FOR 2020-06-30 00:07:58 Doctor Unassigned, No Un [facility] DIAGNOSIS AND TREATMENT Name [facility] US PELVIS COMPLETE WITH 2020-05-11 15:13:42 Sinai Bello [facility] TRANSVAGINAL [facility] PAP SMEAR-LIQUID 2020-04-29 17:47:00 Sinai Bello [facility] BASED-CP [facility] Encounters Start End Encounter Admission Attending Care Care Encounter Source Date/Time Date/Time Type Type Clinicians Facility Department ID 2021-01-18 Emergency [facility] [id number] Univers 02:57:33 ity [facility] 2021-01-17 Emergency [facility] [id number] Univers 20:14:06 ity of [facility] 2021-01-16 Emergency [facility] [id number] Univers 12:42:10 ity [facility] 2020-12-17 2020-12-17 Emergency [facility] [id number] Univers 08:20:00 10:30:00 Johnson Cm [id number] i ty [facility]7.2.686 [facility] [id number] [facility] 0[address] [place] 2020-12-17 2020-12-17 Orders Doctor BARROS [id number] Univers 00:00:00 00:00:00 Only Unassigned, JOE [id number] ity of [facility] 4.2.7.2.686 [place] [id number] [facility] 009 Branch 2020-11-29 2020-11-29 Outpatient Hugh CLARK [facility] [id number] Univers 15:00:00 15:00:00 [facility] [id number] [facility] 2020-11-29 2020-11-29 Outpatient Hugh CLARK [facility] [id number] Univers 15:00:00 15:00:00 RUTH ANN ity [facility] 2020-11-19 2020-11-19 Emergency Ib[place], [facility] [id number] Univers 10:18:00 12:09:00 Kasey Cm [id number] ity of [place] 4.2.7.2.686 [facility] [id number] [address] 2020-11-19 2020-11-19 Outpatient [facility] [id number] Univers 12:00:00 12:00:00 [id number] [facility] 2020-08-17 2020-08-17 [facility] [id number] Univers 16:00:00 16:00:00 SHONNA [id number] [facility] 2020-07-19 2020-07-19 Outpatient R [facility] [id number] Univers 13:00:00 13:00:00 [id number] ity [facility] 2020-06-29 2020-06-[address] [facility] [id number] 19:23:00 22:08:00 Deneen Cm [id number] [place] [address] [place] [address] [id number] 2020-06-29 2020-06-[address] [facility] [id number] Univers 19:23:00 22:08:00 Deneen Cm [id number] ity of [place] 4.2.7.2.686 [facility] [id number] [address] 2020-06-23 2020-06-23 Outpatient R [facility] [id number] Univers 13:00:00 13:00:00 [id number] ity [facility] 2020-05-11 2020-05-11 [facility] [id number] 08:00:00 23:59:00 Encounter Shonna Cm [id number] [place] 4.2.7.2.686 [place] [id number] 2020-05-11 2020-05-11 [facility] [id number] Univers 08:00:00 23:59:00 Encounter Shonna Cm [id number] ity [facility] 4.2.7.2.686 [facility] [id number] [facility] 806 Branch 2020-05-11 2020-05-11 Outpatient R FRANCA [facility] [id number] Univers 00:00:00 00:00:00 SHONNA [id number] ity [facility] 2020-05-11 2020-05-11 Outpatient R FRANCA [facility] [id number] Univers 00:00:00 00:00:00 SHONNA kassandra [facility] 2020-05-05 2020-05-05 [facility] [id number] Univers 16:00:00 16:00:00 [facility]ON[facility] [id number] [facility] 2020-05-05 2020-05-05 [facility] [id number] Univers 00:00:00 00:00:00 SHONNA [facility] 2020-04-29 2020-04-29 Office Pool, [facility] UNIVERSIT [id number] 09:15:49 10:55:25 Visit [facility] HEALTH 350.1.13.10 [facility] 4.2.7.2.686 [id number] 2020-04-29 2020-04-29 Office Pool, [facility] Resident UNIVERSIT [id number] Univers 09:15:49 10:55:25 Visit Shonna Long HEALTH 350.1.13.10 ity of [facility] 4.2.7.2.686 [facility] [id number] [facility] 113 Branch 2020-04-29 2020-04-29 Outpatient R [facility] [id number] Univers 09:00:00 09[facility]00[facility] 2020-04-29 2020-04-29 [facility] [id number] Univers 00:00:00 00:00:00 (Out) Shonna Y HEALTH 350.1.13.10 i of [facility] 4.2.7.2.686 Marysol tolliver [id number] [facility] 113 Branch Results Test Description Test Time Test Comments Results Result Comments Source COMP. METABOLIC PANEL (13575) 2020-12-17 14:40:25 Test Item Value Reference Range Interpretation Comme nts NA (test code = 0675009175) 139 mmol/L 135-145 K (test code = 6659550478) 4.4 mmol/L 3.5-5.0 CL (test code = 9110490050) 104 mmol/L 98-108 CO2 TOTAL (test code = 27 mmol/L 23-31 8856463528) AGAP (test code = 7957131287) 2-16 BUN (test code = 2274013580) 15 mg/dL 7-23 GLUCOSE (test code = 3132353611) 96 mg/dL 70-110 CREATININE (test code = 0.95 mg/dL 0.50-1.04 7392704109) TOTAL BILI (test code = 0.9 mg/dL 0.1-1.4 4147215887) CALCIUM (test code = 6510880560) 10.3 mg/dL 8.6-10.6 T PROTEIN (test code = 8.0 g/dL 6.3-8.2 5780635353) ALBUMIN (test code = 6745089110) 4.7 g/dL 3.5-5.0 ALK PHOS (test code = 9664886423) 69 U/L 34-122 ALTv (test code = 1742-6) 18 U/L 5-35 AST(SGOT) (test code = 30 U/L 13-40 6029356050) eGFR (test code = 9966706234) mL/min/1.73m2 SARAH (test code = SARAH) Association of Glomerular Filtration Rate (GFR) and Staging of Kidney Disease* + +--------- + ----+| GFR (mL/min/1.73 m2) ?| With Kidney Damage ?| ?Without Kidney Damage+ +--- + +| ?>90 ?| ?Stage one ?| ? Normal ?+ +-------- + -----+| ?60-89 ?| ?Stage two ?| ? Decreased GFR ? + +--------- + ----+| ?30-59 ?| ?Stage three ?| ? Stage three ? + +--------- + ----+| ?15-29 ?| ?Stage four ? | ? Stage four ?+ +-------- + -----+| ?<15 (or dialysis) ? ?| ?Stage five ? | ? Stage five ?+ +-------- + -----+ *Each stage assumes the associated GFR level has been in effect for at least three months. ?Stages 1 to 5, with or without kidney disease, indicate chronic kidney disease. Notes: Determination of stages one and two (with eGFR >59mL/min/1.73 m2) requires estimation of kidney damage for at least three months as defined by structural or functional abnormalities of the kidney, manifested by either:Pathological abnormalities or Markers of kidney damage (including abnormalities in the composition of the blood or urine or abnormalities in imaging tests). [facility] THRMPLAS [id number] 14:24:46 Test Item Value Reference Range Interpretation Comments APTT Patient (test See_Comment [Automat ed code = 3173-2) message] The system which generated this result transmitted reference range : 23 - 38 Seconds . The reference range was not used to interpr et this result as normal/abnormal . SARAH (test code = SARAH) The [facility] patient population mean normal value for aPTT is 30 seconds. Lab Interpretation Normal (test code = 15132-0) [facility] TIME / [id number] 14:22:45 Test Item Value Reference Range Interpretation Comments PROTIME PATIENT (test See_Comment [Auto mated message] code = 5964-2) The system wh ich generated this result transmitted ref erence range: 12.0 - 1 4.7 Seconds. The re ference range was not u sed to interpret this result as normal/abnor mal. INR (test code = 6301-6) Nor mal INR <1.1; Warfarin Therap eutic range 2.0 to 3. 0 or 2.5 to 3.5, dep ending upon the indica tions. Lab Interpretation (test Normal code = 60707-5) [facility] WITH [id number] 14:13:26 Test Item Value Reference Range Interpretation Comments WBC (test code = See_Comment [Automated message] 6690-2) The system [employer]ix[employer] generated this result transmitted ref erence range: 4.30 - 1 1.10 10*3/?L. The re ference range was not u sed to interpret this result as normal/abnor mal. RBC (test code = See_Comment [Automated message] 789-8) The system [employer] generated this result transmitted ref erence range: 3.93 - 5 .25 10*6/?L. The re ference range was not u sed to interpret this result as normal/abnor mal. HGB (test code = 14.3 g/dL 11.6-15.0 718-7) HCT (test code = 42.4 % 35.7-45.2 4544-3) MCV (test code = 86.4 fL 80.6-95.5 787-2) MCH (test code = 29.1 pg 25.9-32.8 785-6) MCHC (test code = 33.7 g/dL 31.6-35.1 786-4) RDW-SD (test code 40.0 fL 39.0-49.9 = 97618-3) RDW-CV (test code 12.7 % 12.0-15.5 = 788-0) PLT (test code = See_Comment [Automated message] 777-3) The system Quixey generated this result transmitted ref erence range: 166 - 35 8 10*3/?L. The re ference range was not u sed to interpret this result as normal/abnor mal. MPV (test code = 12.0 fL 9.5-12.9 65538-5) NRBC/100 WBC (test See_Comment [Automat ed message] code = 2686253952) The syste [facility] which generated this result transmitted ref erence range: 0.0 - 10 .0 /100 WBCs. The refer ence range was not u sed to interpret this result as normal/abnor mal. NRBC x10^3 (test <0.01 See_Comment [Automated message] code = 2692544702) The syste m which generated this result transmitted ref erence range: 10*3/?L. The reference range was not used to interpr et this result as normal/abnormal . GRAN MAT (NEUT) % 75.6 % (test code = 770-8) IMM GRAN % (test 0.40 % code = 2202868280) LYMPH % (test code 15.0 % = 736-9) MONO % (test code 8.4 % = 5905-5) EOS % (test code = 0.3 % 713-8) BASO % (test code 0.3 % = 706-2) GRAN MAT 6.86 10*3/uL 1.88-7.09 x10^3(ANC) (test code = 0127599980) IMM GRAN x10^3 0.04 10*3/uL 0.00-0.06 (test code = 4410560437) LYMPH x10^3 (test 1.36 10*3/uL 1.32-3.29 code = 731-0) MONO x10^3 (test 0.76 10*3/uL 0.33-0.92 code = 742-7) EOS x10^3 (test 0.03 10*3/uL 0.03-0.39 code = 711-2) BASO x10^3 (test 0.03 10*3/uL 0.01-0.07 code = 704-7) [facility] HospitalPOMI [id number] 13:32:00 Test Item Value Reference Range Interpretation Comments POCT PREG (test code = 1605) negative On board controls acceptable with C present Line (test code = 3574) Lab Interpretation (test code = Normal 69166-2) [facility]2020-11-19 16:32:18 Test Item Value Reference Range Interpretation Comments BETA HCG (test <2.39 See_Comment [Automated m essage] code = The system Vid[employer] h 8248341561) generated this result transmit roberto reference range : Non- fe male and male patien ts: <5 mIU/mL. The reference range was not used to interpret this result as normal/abnormal . SARAH (test code Gestational Age ? ? = SARAH) ?Range (mIU/mL) 1-10 ?Weeks ?46-43618694-84 Weeks ?54828-99505881-89 Weeks ?0549-79247827-44 Weeks ?1531-791649 Biotin has been reported to cause a negative bias, interpret results relative to patient's use of biotin. [facility] BHCG (QUANTITATIVE)2020-11-19 16:32:18 Test Item Value Reference Range Interpretation Comments BETA HCG (test <2.39 See_Comment [Automated m essage] code = The system [employer] h 0464901213) generated this result transmit roberto reference range : Non- fe male and male patien ts: <5 mIU/mL. The reference range was not used to interpret this result as normal/abnormal . SARAH (test code Gestational Age ? ? = SARAH) ?Range (mIU/mL) 1-10 ?Weeks ?20-19086857-96 Weeks ?03826-26199034-95 Weeks ?4615-08611907-89 Weeks ?1531-636509 Biotin has been reported to cause a negative bias, interpret results relative to patient's use of biotin. [facility]URINALYSIS2021-09-03 16:24:42 Test Item Value Reference Range Interpretation Comments APPEARANCE (test code = Turbid Clear A 5953319907) COLOR (test code = Red Yellow A 8660376647) PH (test code = 4.8-8.0 8460740875) SP GRAVITY (test code = 1.003-1.030 9166710435) GLU U QUAL (test code = 50 mg/dL Normal A 6948419847) BLOOD (test code = 3+ Negative A 5438151997) KETONES (test code = 5 mg/dL Negative A 3894130504) PROTEIN (test code = 100 mg/dL Negative A 2887-8) UROBILIN (test code = Normal Normal 7629305672) BILIRUBIN (test code = Negative Negative 2513847230) NITRITE (test code = Negative Negative 1806583581) LEUK AUNG (test code = Negative Negative 7978596721) RBC/HPF (test code = >182 See_Comment H [Autom ated message] 5428535772) The system Quixey generated this result transmit roberto reference range : 0 - 3 HPF. The refe rence range was not u sed to interpret th is result as normal/abnormal . WBC/HPF (test code = See_Comment [Autom ated message] 6073180510) The system [employer] generated this result transmit roberto reference range : 0 - 5 HPF. The refe rence range was not u sed to interpret th is result as normal/abnormal . BACTERIA (test code = Negative Negative 7778925971) SQ EPITH (test code = HPF 2162986606) Lab Interpretation (test Abnormal code = 24058-9) [facility]2021-09-03 16:24:42 Test Item Value Reference Range Interpretation Comments APPEARANCE (test code = Turbid Clear A 2830413663) COLOR (test code = Red Yellow A 2425000937) PH (test code = 4.8-8.0 4270780935) SP GRAVITY (test code = 1.003-1.030 1086816816) GLU U QUAL (test code = 50 mg/dL Normal A 5355143587) BLOOD (test code = 3+ Negative A 5930433016) KETONES (test code = 5 mg/dL Negative A 7248034873) PROTEIN (test code = 100 mg/dL Negative A 2887-8) UROBILIN (test code = Normal Normal 7150122144) BILIRUBIN (test code = Negative Negative 3881273039) NITRITE (test code = Negative Negative 3862756606) LEUK AUNG (test code = Negative Negative 3959391662) RBC/HPF (test code = >182 See_Comment H [Autom ated message] 0516522655) The system Quixey generated this result transmit roberto reference range : 0 - 3 HPF. The refe rence range was not u sed to interpret th is result as normal/abnormal . WBC/HPF (test code = See_Comment [Autom ated message] 7685595733) The system Quixey generated this result transmit roberto reference range : 0 - 5 HPF. The refe rence range was not u sed to interpret th is result as normal/abnormal . BACTERIA (test code = Negative Negative 3144531270) SQ EPITH (test code = HPF 9410987929) Lab Interpretation (test Abnormal code = 84486-4) [facility] ([id number])2020-11-19 16:14:00 Test Item Value Reference Range Interpretation Comments NA (test code = 139 mmol/L 135-145 9530032674) K (test code = 4.1 mmol/L 3.5-5.0 2936512150) CL (test code = 105 mmol/L 98-108 5946011729) CO2 TOTAL (test code = 23 mmol/L 23-31 9797810532) AGAP (test code = 2-16 4441711329) BUN (test code = 15 mg/dL 7-23 2336787102) GLUCOSE (test code = 92 mg/dL 70-110 8907828197) CREATININE (test code = 0.96 mg/dL 0.50-1.04 3940782292) TOTAL BILI (test code = 0.6 mg/dL 0.1-1.9 2123130714) CALCIUM (test code = 10.0 mg/dL 8.6-10.6 0518020368) T PROTEIN (test code = 8.6 g/dL 6.3-8.2 H 4780800799) ALBUMIN (test code = 4.9 g/dL 3.5-5.0 1903069849) ALK PHOS (test code = 65 U/L 34-122 5907601592) ALTv (test code = 26 U/L 5-35 1742-6) AST(SGOT) (test code = 45 U/L 13-40 H 9348543467) eGFR (test code = mL/min/1.73m2 5474656252) SARAH (test code = SARAH) Association of Glomerular Filtration Rate (GFR) and Staging of Kidney Disease* + --+ --+ ------+| GFR (mL/min/1.73 m2) ?| With Kidney Damage ?| ?Without Kidney Damage+ --------+ --------+ +| ?>90 ?| ?Stage one ?| ? Normal ?+ ---+ ---+ -------+| ?60-89 ?| ?Stage two ?| ? Decreased GFR ? + --+ --+ ------+| ?30-59 ?| ?Stage three ?| ? Stage three ? + --+ --+ ------+| ?15-29 ?| ?Stage four ? | ? Stage four ?+ ---+ ---+ -------+| ?<15 (or dialysis) ? ?| ?Stage five ? | ? Stage five ?+ ---+ ---+ -------+ *Each stage assumes the associated GFR level has been in effect for at least three months. ?Stages 1 to 5, with or without kidney disease, indicate chronic kidney disease. Notes: Determination of stages one and two (with eGFR >59mL/min/1.73 m2) requires estimation of kidney damage for at least three months as defined by structural or functional abnormalities of the kidney, manifested by either:Pathological abnormalities or Markers of kidney damage (including abnormalities in the composition of the blood or urine or abnormalities in imaging tests). Lab Interpretation Abnormal (test code = 52863-7) [facility]. METABOLIC PANEL ([id number])2020-11-19 16:14:00 Test Item Value Reference Range Interpretation Comments NA (test code = 139 mmol/L 135-145 3263997115) K (test code = 4.1 mmol/L 3.5-5.0 4781078586) CL (test code = 105 mmol/L 98-108 8619743660) CO2 TOTAL (test code = 23 mmol/L 23-31 7323013796) AGAP (test code = 2-16 3413332613) BUN (test code = 15 mg/dL 7-23 0610251501) GLUCOSE (test code = 92 mg/dL 70-110 1776023173) CREATININE (test code = 0.96 mg/dL 0.50-1.04 3583222729) TOTAL BILI (test code = 0.6 mg/dL 0.1-1.1 4974381771) CALCIUM (test code = 10.0 mg/dL 8.6-10.6 4499227266) T PROTEIN (test code = 8.6 g/dL 6.3-8.2 H 8820152571) ALBUMIN (test code = 4.9 g/dL 3.5-5.0 1304074496) ALK PHOS (test code = 65 U/L 34-122 2614477684) ALTv (test code = 26 U/L 5-35 2-6) AST(SGOT) (test code = 45 U/L 13-40 H 7625974881) eGFR (test code = mL/min/1.73m2 6788634207) SARAH (test code = SARAH) Association of Glomerular Filtration Rate (GFR) and Staging of Kidney Disease* + --+ --+ ------+| GFR (mL/min/1.73 m2) ?| With Kidney Damage ?| ?Without Kidney Damage+ --------+ --------+ +| ?>90 ?| ?Stage one ?| ? Normal ?+ ---+ ---+ -------+| ?60-89 ?| ?Stage two ?| ? Decreased GFR ? + --+ --+ ------+| ?30-59 ?| ?Stage three ?| ? Stage three ? + --+ --+ ------+| ?15-29 ?| ?Stage four ? | ? Stage four ?+ ---+ ---+ -------+| ?<15 (or dialysis) ? ?| ?Stage five ? | ? Stage five ?+ ---+ ---+ -------+ *Each stage assumes the associated GFR level has been in effect for at least three months. ?Stages 1 to 5, with or without kidney disease, indicate chronic kidney disease. Notes: Determination of stages one and two (with eGFR >59mL/min/1.73 m2) requires estimation of kidney damage for at least three months as defined by structural or functional abnormalities of the kidney, manifested by either:Pathological abnormalities or Markers of kidney damage (including abnormalities in the composition of the blood or urine or abnormalities in imaging tests). Lab Interpretation Abnormal (test code = 66547-8) [facility] WITH [id number] 15:58:48 Test Item Value Reference Range Interpretation Comments WBC (test code = See_Comment [Automated 2564-2) message] The sy stem which generated this result transmitted reference range : 4.30 - 11.10 10*3/?L. The reference range was not used to interpret this result as normal/abnormal . RBC (test code = See_Comment [Automated 008-8) message] The sy stem which generated this result transmitted reference range : 3.93 - 5.25 10*6/?L. The reference range was not used to interpret this result as normal/abnormal . HGB (test code = 14.7 g/dL 11.6-15.0 718-7) HCT (test code = 43.3 % 35.7-45.2 4544-3) MCV (test code = 86.3 fL 80.6-95.5 787-2) MCH (test code = 29.3 pg 25.9-32.8 785-6) MCHC (test code = 33.9 g/dL 31.6-35.1 786-4) RDW-SD (test code = 40.7 fL 39.0-49.9 14288-3) RDW-CV (test code = 13.1 % 12.0-15.5 788-0) PLT (test code = See_Comment [Automated 777-3) message] The sy stem which generated this result transmitted reference range : 166 - 358 10*3/ ?L. The reference r cortes was not used to interpret this result as normal/abnormal . MPV (test code = 12.3 fL 9.5-12.9 87894-5) NRBC/100 WBC (test See_Comment [Automat ed code = 5210834441) message] The system which generated this result transmitted reference range : 0.0 - 10.0 /100 WBCs. The refer ence range was not u sed to interpret th is result as normal/abnormal . NRBC x10^3 (test code <0.01 See_Comment [Auto mated = 4227091788) message] The s ystem which generated this result transmitted reference range : 10*3/?L. The reference range was not used to interpret this result as normal/abnormal . GRAN MAT (NEUT) % 63.0 % (test code = 770-8) IMM GRAN % (test code 0.20 % = 3485959829) LYMPH % (test code = 26.0 % 736-9) MONO % (test code = 8.3 % 5905-5) EOS % (test code = 1.9 % 713-8) BASO % (test code = 0.6 % 706-2) GRAN MAT x10^3(ANC) 3.05 10*3/uL 1.88-7.09 (test code = 0158096141) IMM GRAN x10^3 (test <0.03 0.00-0.06 code = 7886948307) LYMPH x10^3 (test code 1.26 10*3/uL 1.32-3.29 L = 731-0) MONO x10^3 (test code 0.40 10*3/uL 0.33-0.92 = 742-7) EOS x10^3 (test code = 0.09 10*3/uL 0.03-0.39 711-2) BASO x10^3 (test code 0.03 10*3/uL 0.01-0.07 = 704-7) Lab Interpretation Abnormal (test code = 01749-8) [facility] WITH [id number] 15:58:48 Test Item Value Reference Range Interpretation Comments WBC (test code = See_Comment [Automated 3090-2) message] The sy stem which generated this result transmitted reference range : 4.30 - 11.10 10*3/?L. The reference range was not used to interpret this result as normal/abnormal . RBC (test code = See_Comment [Automated 939-8) message] The sy stem which generated this result transmitted reference range : 3.93 - 5.25 10*6/?L. The reference range was not used to interpret this result as normal/abnormal . HGB (test code = 14.7 g/dL 11.6-15.0 718-7) HCT (test code = 43.3 % 35.7-45.2 4544-3) MCV (test code = 86.3 fL 80.6-95.5 787-2) MCH (test code = 29.3 pg 25.9-32.8 785-6) MCHC (test code = 33.9 g/dL 31.6-35.1 786-4) RDW-SD (test code = 40.7 fL 39.0-49.9 33026-2) RDW-CV (test code = 13.1 % 12.0-15.5 788-0) PLT (test code = See_Comment [Automated 527-3) message] The sy stem which generated this result transmitted reference range : 166 - 358 10*3/ ?L. The reference r cortes was not used to interpret this result as normal/abnormal . MPV (test code = 12.3 fL 9.5-12.9 61179-8) NRBC/100 WBC (test See_Comment [Automat ed code = 1021431947) message] The system which generated this result transmitted reference range : 0.0 - 10.0 /100 WBCs. The refer ence range was not u sed to interpret th is result as normal/abnormal . NRBC x10^3 (test code <0.01 See_Comment [Auto mated = 3193299790) message] The s ystem which generated this result transmitted reference range : 10*3/?L. The reference range was not used to interpret this result as normal/abnormal . GRAN MAT (NEUT) % 63.0 % (test code = 770-8) IMM GRAN % (test code 0.20 % = 6279661976) LYMPH % (test code = 26.0 % 736-9) MONO % (test code = 8.3 % 5905-5) EOS % (test code = 1.9 % 713-8) BASO % (test code = 0.6 % 706-2) GRAN MAT x10^3(ANC) 3.05 10*3/uL 1.88-7.09 (test code = 0282781315) IMM GRAN x10^3 (test <0.03 0.00-0.06 code = 3084914437) LYMPH x10^3 (test code 1.26 10*3/uL 1.32-3.29 L = 731-0) MONO x10^3 (test code 0.40 10*3/uL 0.33-0.92 = 742-7) EOS x10^3 (test code = 0.09 10*3/uL 0.03-0.39 711-2) BASO x10^3 (test code 0.03 10*3/uL 0.01-0.07 = 704-7) Lab Interpretation Abnormal (test code = 87486-0) [facility] [id number] 15:30:00 Test Item Value Reference Range Interpretation Comments POCT PREG (test code = 1605) negative On board controls acceptable with present C Line (test code = 3574) POCT PREG LOT # (test code = 3575) [id number] POCT PREG TEST DATE (test 03/18/2022 code = 3576) Lab Interpretation (test code = Normal 18694-7) [facility] [id number] 15:30:00 Test Item Value Reference Range Interpretation Comments POCT PREG (test code = 1605) negative On board controls acceptable with present C Line (test code = 3574) POCT PREG LOT # (test code = 3575) [id number] POCT PREG TEST DATE (test 03/18/2022 code = 3576) Lab Interpretation (test code = Normal 58452-5) [facility] STREP SCREEN FOR GROUP [id number] 02:14:58 Test Item Value Reference Range Interpretation Comments Streptococcus pyogenes (group A) Negative Negative antigen (test code = 49209-3) Lab Interpretation (test code = Normal 62784-6) [facility] 02:11:21 Test Item Value Reference Range Interpretation Comments APPEARANCE (test code = Clear Clear 6372351368) COLOR (test code = Yellow Yellow 2751074052) PH (test code = 4.8-8.0 1899293073) SP GRAVITY (test code = 1.003-1.030 9496221133) GLU U QUAL (test code = Normal Normal 6167950047) BLOOD (test code = Negative Negative 3377459354) KETONES (test code = 20 mg/dL Negative A 6305144205) PROTEIN (test code = Negative Negative 2887-8) UROBILIN (test code = Normal Normal 3012581200) BILIRUBIN (test code = Negative Negative 0013976495) NITRITE (test code = Positive Negative A 6807597479) LEUK AUNG (test code = Negative Negative 0077631688) RBC/HPF (test code = See_Comment [Autom ated message] 0592064736) The system Quixey generated this result transmitted ref erence range: 0 - 3 HP F. The reference range was not used to int erpret this result as normal/abnormal . WBC/HPF (test code = See_Comment [Autom ated message] 9588786642) The system Quixey generated this result transmitted ref erence range: 0 - 5 HP F. The reference range was not used to int erpret this result as normal/abnormal . BACTERIA (test code = Few Negative A 0229551244) MUCOUS (test code = Slight Negative LPF A 4388904256) SQ EPITH (test code = <1 HPF 4436667434) Lab Interpretation (test Abnormal code = 22203-5) [facility] (ID NOW RAPID TESTING)2020-06-30 02:03:56 Test Item Value Reference Range Interpretation Comments SARS-CoV-2 Rapid ID NOW Positive Not Detected A (test code = 19627-1) SARAH (test code = SARAH) ID NOW COVID-19 Assay is an isothermal nucleic acid amplification test intended for the qualitative detection of nucleic acid from SARS-CoV-2 viral RNA in nasopharyngeal ([employer]) specimens. It is used under Emergency Use Authorization (EUA) by FDA. The limit of detection (LOD) of the assay is 125 Genome Equivalents/mL. A positive result is indicative of the presence of SARS-CoV-2 RNA. ?Clinical correlation with patient history and other diagnostic information is necessary to determine patient infection status. A negative (Not Detected) result does not preclude SARS-CoV-2 infection. In patients with clinical symptoms and other tests that are consistent with SARS-CoV-2 infection, negative results should be treated as presumptive negative and a new specimen should be tested with alternative PCR molecular test. Invalid: Please collect a new specimen for repeat patient testing if clinically indicated. Lab Interpretation Abnormal (test code = 22475-6) [facility] [id number] 01:46:00 Test Item Value Reference Range Interpretation Comments POCT PREG (test code = 1605) negative On board controls acceptable present with C Line (test code = 3574) POCT PREG LOT # (test code = [id number]) POCT PREG TEST DATE 2022-02-15 (test code = 3576) Lab Interpretation (test code = Normal 70304-8) [facility] COMPLETE WITH [id number] 15:17:47HISTORY: History of right ovarian cyst. Follow-up. TECHNIQUE: Both transabdominal and transvaginal pelvic ultrasound studieswere completed by the technologist. FINDINGS: Uterus is elongated shaped, measures approximately 8.4 x 3.2 x5.3 cm in size with homogeneous echo texture of the myometrium. Endomet rialecho complex is 5.6 mm. IUD is in good position within the uterus. No freefluid in the cul-de-sac. Right ovary is 2.9 x 1.8 x 1.8 cm (4.79 ml) and left ovary is 3.1 x 2.1 x2.8 cm (9.62 ml). Multiple 14 mm or smaller size follicles are seen in bothovaries consistent with physiologic changes. CONCLU SIONS: 1. Normal size uterus with no focal myometrial lesions seen.2. No endometrial hyperplasia. IUD is in good position within the uterus.3. Small cysts in the ovaries, consistent with physiological changes. [facility], Radiant Results Inft User - 05/11/2020 9:18 AM CSTHISTORY: History of right ovarian c yst. Follow-up.TECHNIQUE: Both transabdominal and transvaginal pelvic ultrasound studieswere completed by the technologist.FINDINGS: Uterus is elongated shaped, measures approximately 8.4 x 3.2 x5.3 cmin size with homogeneous echo texture of the myometrium. Endometrialecho complex is 5.6 mm. IUD is in good position within the uterus. No freefluid in the cul-de-sac. Right ovary is 2.9 x 1.8 x 1.8 cm (4.79 ml) and left ovary is 3.1 x 2.1 x2.8 cm (9.62 ml). Multiple 14 mm or smaller size follicles areseen in bothovaries consistent with physiologic changes.CONCLUSIONS: 1. Normal size uterus with no focal myometrial lesions seen.2. No endometrial hyperplasia. IUD is in good position within the uterus.3. Small cysts in the ovaries, consistent with physiological changes.[facility]"
== END 2021-01-19 01:07 | disposition home or self-care (01) ==
LOC: ER 22:31
DX: R11.2 Nausea with vomiting, unspecified (principal)
CPT/HCPCS: 96361; 85025; 80048; 36415; 80076; 83690; 96374; 99284; J7030; J2405

== ENCOUNTER 2023-02-04 07:18 | Emergency (ER) | payer SELFPAY ==
--- OUTSIDE RECORDS SUMMARY | 2023-02-04 07:22 | XMS REPORT | Continuity of Care Document ---
:1995 Author Organization [facility] t Address [address] [place] [address] [place] [id number] Care Team Providers Name Role Phone Pcp, Patient Does Not Have A Primary Care Physician [id number] SANJANA GARCIA Attending Clinician Unavailable Sanjana Garcia PA-C Attending Clinician JANIYA WEINBERG Attending Clinician Unavailable Janiya Weinberg DO Attending Clinician JENNIFER COTTRELL Attending Clinician Unavailable Jennifer Cottrell DO Attending Clinician Johnson Osorio MD Attending Clinician Doctor Unassigned, [place] Attending Clinician Unavailable RUTH ANN CLARK Attending Clinician Unavailable Kasey Hussein Attending Clinician Deneen Zelaya NP Attending Clinician Shonna Schulte MD Attending Clinician SHONNA SCHULTE Attending Clinician [facility] Attending Clinician Unavailable SANJANA GARCIA Admitting Clinician Unavailable JENNIFER COTTRELL Admitting Clinician Unavailable Payers Payer Name Policy Type Policy Number Effective Date Expiration Date S ource [facility] [id number] 2020 00:00:00 Problems Condition Condition Condition Status Onset Resolution Last Treating Co mments Source Name Details Category Date Date Treatment Clinician Date UTI UTI Disease Active Univers (urinary (urinary 4-28 ity of tract tract 00:00: [place] infection) infection) 00 Me dical due to due to Branch Enterococc Enterococc us us Allergies, Adverse Reactions, Alerts Allergy Allergy Status Severity Reaction(s) Onset Inactive Treating Comm ents Source Name Type Date Date Clinician NO KNOWN Drug Active Univers ALLERGIE Class ity of [facility] Social History Social Habit Start Date Stop Date Quantity Comments Source Gender identity Universit y [facility] Sexual orientation Univer sity [facility] History of Social 2022-11-13 2022-11-13 Univers ity of function 00:00:00 00:00:00 [facility] Exposure to 2022-06-25 2022-07-05 Not sure [facility] SARS-CoV-2 (event) 00:00:00 11:45:00 [facility] Alcohol intake 2020-11-22 2020-11-22 Ex-drinker [facility] 00:00:00 00:00:00 (finding) [facility] Tobacco use and 2020-04-29 2020-04-29 Smokeless Universit y of exposure 00:00:00 00:00:00 tobacco non-user [facility] Sex Assigned At [birth year] Universit y of 00:00:00 00:00:00 [facility] Smoking Status Start Date Stop Date Source Never smoked tobacco [facility] Medications Ordered Filled Start Stop Current Ordering Indication Dosage Frequency Signature Comments Components Source Medication Medication Date Date Medication? Clinician (SIG) Name Name NaCl 0.9% 2022- No 1000mL at 999 Uni vers (NS) bolus 11-03 08-18 mL/hr, ity of infusion 17:30: 19:03 1,000 mL, [place] 1,000 mL 00 :00 IV Medical Infusion, Branch ONCE, 1 dose, On Sun11/03/22 at 1230, LANI ketorolac 2021-03- No 15mg 15 mg, Unive rs (TORADOL) 04-19 Slow IV ity of injection 00:00: 23:59 Push, Q6H, [place] 15 mg 00 :00 4 doses, Medical First dose Branch on Sun02/15/22 at 1800, Last dose on Sun02/16/22 at 1200, Routine NaCl 0.9% 2021-03 No 1000mL at 999 Uni vers (NS) bolus 1-30 11-30 mL/hr, ity of infusion 19:45: 20:00 1,000 mL, [place] 1,000 mL 00 :00 IV Medical Piggyback, Branch ONCE, 1 dose, On Sun02/15/22 at 1345, STAT ondansetron 2021-03- No 4mg 4 mg, Slow Univers (ZOFRAN -30 11-30 IV Push, ity of (PF)) 18:45: 18:52 ONCE, 1 [place] injection 4 00 :00 dose, On Medi mindy mg Sun Branch 02/15/22 at 1245, Routine ketorolac 2021-03 Yes [id number] 10mg Take 1 Univers 10 mg 1-30 [id number] tablet by ity of tablet 00:00: mouth [place] 00 every 6 Medical (six) Branch hours as needed for Pain (scale 7-10). ondansetron 2021-03 Yes [id number] 4mg Take 1 Univers 4 mg 1-30 [id number] tablet by ity of disintegrat 00:00: mouth [place] ing tablet 00 every 8 Medica l (eight) Branch hours as needed for Nausea and Vomiting (N/V). ketorolac 2021-03 Yes [id number] 10mg Take 1 Univers 10 mg 1-30 [id number] tablet by ity of tablet 00:00: mouth [place] 00 every 6 Medical (six) Branch hours as needed for Pain (scale 7-10). ondansetron 2021-03 Yes [id number] 4mg Take 1 Univers 4 mg 1-30 [id number] tablet by ity of disintegrat 00:00: mouth [place] ing tablet 00 every 8 Medica l (eight) Branch hours as needed for Nausea and Vomiting (N/V). ketorolac 2021-03 Yes [id number] 10mg Take 1 Univers 10 mg 1-30 [id number] tablet by ity of tablet 00:00: mouth [place] 00 every 6 Medical (six) Branch hours as needed for Pain (scale 7-10). ondansetron 2021-03 Yes [id number] 4mg Take 1 Univers 4 mg 1-30 [id number] tablet by ity of disintegrat 00:00: mouth [place] ing tablet 00 every 8 Medica l (eight) Branch hours as needed for Nausea and Vomiting (N/V). ketorolac 2021-03 Yes [id number] 10mg Take 1 Univers 10 mg 1-30 [id number] tablet by ity of tablet 00:00: mouth [place] 00 every 6 Medical (six) Branch hours as needed for Pain (scale 7-10). ondansetron 2021-03 Yes [id number] 4mg Take 1 Univers 4 mg 1-30 [id number] tablet by ity of disintegrat 00:00: mouth [place] ing tablet 00 every 8 Medica l (eight) Branch hours as needed for Nausea and Vomiting (N/V). ketorolac 2021-03 Yes [id number] 10mg Take 1 Univers 10 mg 1-30 [id number] tablet by ity of tablet 00:00: mouth [place] 00 every 6 Medical (six) Branch hours as needed for Pain (scale 7-10). ondansetron 2021-03 Yes [id number] 4mg Take 1 Univers 4 mg 1-30 [id number] tablet by ity of disintegrat 00:00: mouth [place] ing tablet 00 every 8 Medica l (eight) Branch hours as needed for Nausea and Vomiting (N/V). ketorolac 2021-03 Yes [id number] 10mg Take 1 Univers 10 mg 1-30 [id number] tablet by ity of tablet 00:00: mouth [place] 00 every 6 Medical (six) Branch hours as needed for Pain (scale 7-10). ondansetron 2021-03 Yes [id number] 4mg Take 1 Univers 4 mg 1-30 [id number] tablet by ity of disintegrat 00:00: mouth [place] ing tablet 00 every 8 Medica l (eight) Branch hours as needed for Nausea and Vomiting (N/V). ketorolac 2021-03 Yes [id number] 10mg Take 1 Univers 10 mg 1-30 [id number] tablet by ity of tablet 00:00: mouth [place] 00 every 6 Medical (six) Branch hours as needed for Pain (scale 7-10). ondansetron 2021-03 Yes [id number] 4mg Take 1 Univers 4 mg 1-30 [id number] tablet by ity of disintegrat 00:00: mouth [place] ing tablet 00 every 8 Medica l (eight) Branch hours as needed for Nausea and Vomiting (N/V). ketorolac 2021-03 Yes [id number] 10mg Take 1 Univers 10 mg 1-30 [id number] tablet by ity of tablet 00:00: mouth [place] 00 every 6 Medical (six) Branch hours as needed for Pain (scale 7-10). ondansetron 2021-03 Yes [id number] 4mg Take 1 Univers 4 mg 1-30 [id number] tablet by ity of disintegrat 00:00: mouth [place] ing tablet 00 every 8 Medica l (eight) Branch hours as needed for Nausea and Vomiting (N/V). ciprofloxac 2020-03 Yes [id number] 500mg Take 1 Univers in HCl 500 0-01 tablet by ity of mg tablet 00:00: mouth 2 [place] 00 (two) Medical times Branch daily. ondansetron 2020-03 Yes [id number] 4mg Take 1 Univers 4 mg 0-01 tablet by ity of disintegrat 00:00: mouth [place] ing tablet 00 every 4 Medica l (four) Branch hours as needed for Nausea and Vomiting (N/V). ciprofloxac 2020-03 Yes [id number] 500mg Take 1 Univers in HCl 500 0-01 tablet by ity of mg tablet 00:00: mouth 2 [place] 00 (two) Medical times Branch daily. ciprofloxac 2020-03- No [id number] 500mg Take 1 Univers in HCl 500 0-01 12-15 tablet by ity of mg tablet 00:00: 00:00 mouth 2 [place] 00 :00 (two) Medical times Branch daily. ciprofloxac 2020-03- No [id number] 500mg Take 1 Univers in HCl 500 0-01 12-15 tablet by ity of mg tablet 00:00: 00:00 mouth 2 [place] 00 :00 (two) Medical times Branch daily. ondansetron 2020-03- No [id number] 4mg Take 1 Univers 4 mg 0-01 11-30 tablet by ity of disintegrat 00:00: 00:00 [place] ing tablet 00 :00 every 4 Medica l (four) Branch hours as needed for Nausea and Vomiting (N/V). NaCl 0.9% 2020- No 1000mL at 999 Uni vers (NS) bolus 11-19 09-03 mL/hr, ity of infusion 16:30: 17:06 1,000 mL, [place] 1,000 mL 00 :00 IV Medical Piggyback, Branch ONCE, 1 dose, Sun11/19/20 at 1130, STAT NaCl 0.9% 2020- No 1000mL at 999 Uni vers (NS) bolus 11-19 09-03 mL/hr, ity of infusion 16:30: 17:06 1,000 mL, [place] 1,000 mL 00 :00 IV Medical Piggyback, Branch ONCE, 1 dose, Sun11/19/20 at 1130, STAT nitrofurant Yes [id number] Take 20 ml Univers oin 25 mg/5 9-03 (100mg) ity o f mL 00:00: twice [place] suspension 00 daily x 7 Medi mindy days Branch nitrofurant Yes [id number] Take 20 ml Univers oin 25 mg/5 9-03 (100mg) ity o f mL 00:00: twice [place] suspension 00 daily x 7 Medi mindy days Branch nitrofurant 2020- Yes [id number] Take 20 ml Univers oin 25 mg/5 9-03 (100mg) ity o f mL 00:00: twice [place] suspension 00 daily x 7 Medi mindy days Branch nitrofurant 2021- No [id number] Take 20 ml Univers oin 25 mg/5 -03 12-15 (100mg) ity of mL 00:00: 00:00 twice [place] suspension 00 :00 daily x 7 Medi mindy days Branch nitrofurant 2021- No [id number] Take 20 ml Univers oin 25 mg/5 -03 12-15 (100mg) ity of mL 00:00: 00:00 twice [place] suspension 00 :00 daily x 7 Medi mindy days Branch albuterol Yes [id number] 2{puff} Inhale 2 Univers 90 4-13 Puffs ity of mcg/actuati 00:00: every 4 [place] on inhaler 00 (four) Medical hours as Branch needed for Wheezing or Shortness of Breath. albuterol Yes [id number] 2{puff} Inhale 2 Univers 90 4-13 Puffs ity of mcg/actuati 00:00: every 4 [place] on inhaler 00 (four) Medical hours as Branch needed for Wheezing or Shortness of Breath. albuterol Yes [id number] 2{puff} Inhale 2 Univers 90 4-13 Puffs ity of mcg/actuati 00:00: every 4 [place] on inhaler 00 (four) Medical hours as Branch needed for Wheezing or Shortness of Breath. albuterol Yes [id number] 2{puff} Inhale 2 Univers 90 4-13 Puffs ity of mcg/actuati 00:00: every 4 [place] on inhaler 00 (four) Medical hours as Branch needed for Wheezing or Shortness of Breath. albuterol Yes [id number] 2{puff} Inhale 2 Univers 90 4-13 Puffs ity of mcg/actuati 00:00: every 4 [place] on inhaler 00 (four) Medical hours as Branch needed for Wheezing or Shortness of Breath. albuterol Yes [id number] 2{puff} Inhale 2 Univers 90 4-13 Puffs ity of mcg/actuati 00:00: every 4 [place] on inhaler 00 (four) Medical hours as Branch needed for Wheezing or Shortness of Breath. albuterol 2021- No [id number] 2{puff} Inhale 2 Univers 90 4-13 12-15 Puffs ity of mcg/actuati 00:00: 00:00 every 4 [place] on inhaler 00 :00 (four) Medical hours as Branch needed for Wheezing or Shortness of Breath. albuterol 2021- No [id number] 2{puff} Inhale 2 Univers 90 4-13 12-15 Puffs ity of mcg/actuati 00:00: 00:00 every 4 [place] on inhaler 00 :00 (four) Medical hours as Branch needed for Wheezing or Shortness of Breath. cefdinir 2020- No [id number] 300mg Take 6 mL Univers 250 mg/5 mL -29 06-21 by mouth ity of suspension 00:00: 04:59 daily for [place] 00 :00 7 days. Medical Branch No known No Univers medications ity of [place] [facility] No known No Univers medications ity of [place] [facility] No known No Univers medications ity of [facility] Branch No known No Univers medications ity of [place] [facility] Vital Signs Vital Name Observation Time Observation Value Comments Source Systolic blood 2022-11-13 15:12:00 126 mm[Hg] Univer sity of pressure [facility] Branch Diastolic blood 2022-11-13 15:12:00 87 mm[Hg] Unive rsity of pressure [facility] Branch Heart rate 2022-11-13 15:12:00 97 /min Universi ty of [place] [facility] Egnar Body temperature 2022-11-13 15:12:00 36.72 Sandra Univ ersity of [facility] Branch Respiratory rate 2022-11-13 15:12:00 18 /min Univ ersity of [place] [facility] Body height 2022-11-13 15:12:00 157.5 cm Universi ty of [place] [facility] Egnar Body weight 2022-11-13 15:12:00 57.607 kg Universi ty of [place] [facility] BMI 2022-11-13 15:12:00 23.23 kg/m2 Universi ty of [place] [facility] Systolic blood 2022-11-03 16:38:00 134 mm[Hg] Univer sity of pressure [place] [facility] Diastolic blood 2022-11-03 16:38:00 84 mm[Hg] Unive rsity of pressure [place] [facility] Egnar Heart rate 2022-11-03 16:38:00 64 /min Universi ty of [place] [facility] Body temperature 2022-11-03 16:38:00 36.61 Sandra Univ ersity of [place] [facility] Respiratory rate 2022-11-03 16:38:00 16 /min Univ ersity of [place] [facility] Body height 2022-11-03 16:38:00 157.5 cm Universi ty of [place] [facility] Body weight 2022-11-03 16:38:00 54.432 kg Universi ty of [place] [facility] BMI 2022-11-03 16:38:00 21.95 kg/m2 Universi ty of [place] [facility] Oxygen saturation in 2022-11-03 16:38:00 100 /min [facility] Arterial blood by [facility] Pulse oximetry Branch Systolic blood 2022-05-22 01:01:00 127 mm[Hg] Univer sity of pressure [place] [facility] Diastolic blood 2022-05-22 01:01:00 88 mm[Hg] Unive rsity of pressure [place] [facility] Heart rate 2022-05-22 01:01:00 120 /min Universi ty of [place] [facility] Body temperature 2022-05-22 01:01:00 37.78 Sandra Univ ersity of [place] [facility] Respiratory rate 2022-05-22 01:01:00 18 /min Univ ersity of [place] [facility] Body height 2022-05-22 01:01:00 157.5 cm Universi ty of [place] [facility] Body weight 2022-05-22 01:01:00 56.7 kg Universi ty of [place] [facility] BMI 2022-05-22 01:01:00 22.86 kg/m2 Universi ty of [place] [facility] Oxygen saturation in 2022-05-22 01:01:00 100 /min University of Arterial blood by [facility] Pulse oximetry Branch Systolic blood 2022-03-02 16:01:00 131 mm[Hg] Univer sity of pressure [place] [facility] Diastolic blood 2022-03-02 16:01:00 84 mm[Hg] Unive rsity of pressure [place] [facility] Heart rate 2022-03-02 16:01:00 67 /min Universi ty of [place] [facility] Body temperature 2022-03-02 16:01:00 36.72 Sandra Univ ersity of [place] [facility] Respiratory rate 2022-03-02 16:01:00 18 /min Univ ersity of [place] [facility] Body height 2022-03-02 16:01:00 157.5 cm Universi ty of [place] [facility] Body weight 2022-03-02 16:01:00 56.246 kg Universi ty of [place] [facility] BMI 2022-03-02 16:01:00 22.68 kg/m2 Universi ty of [place] [facility] Systolic blood 2022-02-15 20:45:22 119 mm[Hg] Univer sity of pressure [place] [facility] Diastolic blood 2022-02-15 20:45:22 81 mm[Hg] Unive rsity of pressure [place] [facility] Heart rate 2022-02-15 20:45:22 86 /min Universi ty of [place] [facility] Respiratory rate 2022-02-15 20:45:22 22 /min Univ ersity of [place] [facility] Oxygen saturation in 2022-02-15 20:45:22 100 /min University of Arterial blood by [place] [facility] Pulse oximetry Branch Body temperature 2022-02-15 18:35:00 36.78 Sandra Univ ersity of [place] [facility] Body height 2022-02-15 18:35:00 157.5 cm Universi ty of [place] [facility] Body weight 2022-02-15 18:35:00 54.432 kg Universi ty of [place] [facility] BMI 2022-02-15 18:35:00 21.95 kg/m2 Universi ty [facility] [place] [facility] Systolic blood 2020-12-17 15:25:28 123 mm[Hg] Univer sity of pressure [place] [facility] Diastolic blood 2020-12-17 15:25:28 87 mm[Hg] Unive rsity of pressure [place] [facility] Heart rate 2020-12-17 15:25:28 91 /min Universi ty of [place] [facility] Respiratory rate 2020-12-17 15:25:28 16 /min Univ ersity of [place] [facility] Oxygen saturation in 2020-12-17 15:25:28 100 /min University of Arterial blood by [place] [facility] Pulse oximetry Branch Body temperature 2020-12-17 13:17:00 37.5 Sandra Univ ersity of [place] [facility] Body height 2020-12-17 13:17:00 157.5 cm Universi ty of [place] [facility] Body weight 2020-12-17 13:17:00 54.432 kg Universi ty of [place] [facility] BMI 2020-12-17 13:17:00 21.95 kg/m2 Universi ty of [place] [facility] Systolic blood 2020-11-19 17:00:00 114 mm[Hg] Univer sity of pressure [place] [facility] Diastolic blood 2020-11-19 17:00:00 83 mm[Hg] Unive rsity of pressure [place] [facility] Heart rate 2020-11-19 17:00:00 67 /min Universi ty [facility] [place] [facility] Respiratory rate 2020-11-19 17:00:00 16 /min Univ ersity of [place] [facility] Oxygen saturation in 2020-11-19 17:00:00 99 /min University of Arterial blood by [place] [facility] Pulse oximetry Branch Body temperature 2020-11-19 15:16:00 36.94 Sandra Univ ersity of [place] [facility] Body weight 2020-11-19 15:16:00 54.432 kg Universi ty [facility] [place] [facility] BMI 2020-11-19 15:16:00 21.95 kg/m2 Universi ty of [place] [facility] Systolic blood 2020-06-30 03:01:44 120 mm[Hg] Univer sity of pressure [place] [facility] Diastolic blood 2020-06-30 03:01:44 85 mm[Hg] Unive rsity of pressure [place] [facility] Heart rate 2020-06-30 03:01:44 99 /min Universi ty [facility] [place] [facility] Body temperature 2020-06-30 03:01:44 36.89 Sandra Univ ersity of [place] [facility] Respiratory rate 2020-06-30 03:01:44 18 /min Univ ersity of [place] [facility] Oxygen saturation in 2020-06-30 03:01:44 100 /min University of Arterial blood by [place] [facility] Pulse oximetry Branch Body weight 2020-06-30 00:22:00 56.7 kg Universi ty [facility] [place] [facility] BMI 2020-06-30 00:22:00 22.86 kg/m2 Universi ty [facility] [place] [facility] Systolic blood 2020-06-30 03:01:44 120 mm[Hg] Univer sity of pressure [place] [facility] Diastolic blood 2020-06-30 03:01:44 85 mm[Hg] Unive rsity of pressure [place] [facility] Heart rate 2020-06-30 03:01:44 99 /min Universi ty [facility] [place] [facility] Body temperature 2020-06-30 03:01:44 36.89 Sandra Univ ersity [facility] [place] [facility] Respiratory rate 2020-06-30 03:01:44 18 /min Univ ersity [facility] [place] [facility] Oxygen saturation in 2020-06-30 03:01:44 100 /min University of Arterial blood by [place] [facility] Pulse oximetry Branch Body weight 2020-06-30 00:22:00 56.7 kg [facility]i ty [facility] [place] [facility] BMI 2020-06-30 00:22:00 22.86 kg/m2 Universi ty [facility] [place] [facility] Systolic blood 2020-04-29 15:57:00 130 mm[Hg] Univer sity of pressure [place] [facility] Diastolic blood 2020-04-29 15:57:00 78 mm[Hg] Unive rsity of [facility] Body height 2020-04-29 15:57:00 157.5 cm Universi ty [facility] Body weight 2020-04-29 15:57:00 56.048 kg Universi [facility] BMI 2020-04-29 15:57:00 22.60 kg[facility] Sy[facility] blood 2020-04-29 15:57:00 130 mm[Hg] Univer sity of [facility] Diastolic blood 2020-04-29 15:57:00 78 mm[Hg] Unive rsity of [facility] Body height 2020-04-29 15:57:00 157.5 cm Universi [facility] Body weight 2020-04-29 15:57:00 56.048 kg [facility] BMI 2020-04-29 15:57:00 22.60 kg/m2 [facility] Procedures Procedure Date / Time Performing Clinician Source Performed ASSIGNMENT OF BENEFITS 2022-11-03 16:50:15 Doctor Unassigned, No [facility] CONSENT/REFUSAL FOR 2022-11-03 16:31:42 [facility] US PELVIS COMPLETE WITH 2022-08-17 14:57:57 Sanjana Garcia [facility] TRANSVAGINAL [facility] NOTICE OF PRIVACY 2022-05-22 01:01:16 Doctor Unassigned, No [facility] PRACTICES [facility] CONSENT/REFUSAL FOR 2022-05-22 01:00:55 Doctor [facility]igned, No [facility] US OVARY TORSION 2022-02-15 22:33:52 Jennifer Cottrell [facility] CT ABDOMEN PELVIS WO 2022-02-15 19:12:00 Jennifer Cottrell [facility] CONTRAST [facility] POCT TEST 2022-02-15 18:51:00 [facility] COMP. METABOLIC PANEL 2022-02-15 18:49:[address] [facility] ([id number]) [facility] CBC WITH DIFF 2022-02-15 18:49:00 [facility] URINALYSIS 2022-02-15 18:49:00 [facility] CONSENT/REFUSAL FOR 2022-02-15 18:29:27 Doctor Unassigned, No Un [facility] [place] DIAGNOSIS AND TREATMENT Name [facility] CT ABDOMEN PELVIS WO 2020-12-17 14:11:11 Johnson Osorio [facility] COMP. METABOLIC PANEL 2020-12-17 13:49:00 Johnson Osorio [facility] ([id number]) [facility] CBC WITH DIFF 2020-12-17 13:49:00 Johnson Osorio [facility] PROTHROMBIN TIME / INR 2020-12-17 13:49:[address] [facility] ACTIVATED PARTIAL 2020-12-17 13:49:00 Johnson Osorio [facility] THRMPLAS [facility] URINALYSIS 2020-12-17 13:32:00 Johnson Osorio [facility] POCT TEST 2020-12-17 13:32:00 Johnson Osorio [facility] CONSENT/REFUSAL FOR 2020-12-17 13:13:38 Doctor Unassigned, No Un [facility] [place] DIAGNOSIS AND TREATMENT [facility] COMP. METABOLIC PANEL 2020-11-19 15:42:00 [id number] TOTAL BETA HCG ASSAY 2020-11-19 15:42:00 Kasey Piña Uni [facility] CBC WITH DIFF 2020-11-19 15:41:00 Kasey Piña [facility] URINALYSIS 2020-11-19 15:41:00 Kasey Piña [facility] POCT TEST 2020-11-19 15:30:00 Johnson Osorio [facility] CONSENT/REFUSAL FOR 2020-11-19 15:06:44 Doctor Unassigned, No Un [facility] [place] DIAGNOSIS AND TREATMENT [facility] URINALYSIS 2020-06-30 01:46:00 Racehl Herrera [facility] RAPID STREP SCREEN FOR 2020-06-30 01:46:00 Rachel Herrera [facility] GROUP A [facility] POCT TEST 2020-06-30 01:46:00 Rachel Herrera [facility] COVID-19 (ID NOW RAPID 2020-06-30 01:46:00 Rachel Herrera [facility] TESTING) [facility] CONSENT/REFUSAL FOR 2020-06-30 00:07:58 Doctor Unassigned, No Un [facility] DIAGNOSIS AND TREATMENT Name [facility] US PELVIS COMPLETE WITH 2020-05-11 15:13:42 Sinai Bello [facility] TRANSVAGINAL [facility] PAP SMEAR-LIQUID 2020-04-29 17:47:00 Sinai Bello [facility] BASED-CP [facility] Encounters Start End Encounter Admission Attending Care Care Encounter Source Date/Time Date/Time Type Type Clinicians Facility Department ID 2021-01-18 Emergency [facility] [id number] Univers 02:57:33 [facility] 2021-01-17 Emergency [facility] [id number] Univers 20:14:06 [facility] 2021-01-16 Emergency [facility] [id number] Univers 12:42:10 [facility] 2022-11-13 2022-11-13 Outpatient R RADHA [facility] [id number] Univers 10:30:00 10:31:29 SANJANA [facility] 2022-11-13 2022-11-13 Office Radha [facility] [id number] Univers 10:30:00 10:31:29 Visit Sanjana LOMBARDO [id number] i [facility] [id number] Marysol tolliver PROFESSCH[employer]IS [id number] [place] dical [address] BUILDING 2022-11-03 2022-11-03 Emergency X LENARD [facility] ERT [id number] Univers 11:40:00 14:21:00 JANIYA [facility] 2022-11-03 2022-11-03 [facility] 1.2.840.114 [id number] Univers 11:40:00 14:21:00 Janiya Aida LOMBARDO 350.1.13.10 it[facility] 4.2.7.2.686 [facility] [phone] [facility] 084 Egnar 2022-08-17 2022-08-17 Outpatient R RADHA [facility] [id number] Univers 09:09:16 23:59:00 SANJANA [facility] 2022-08-17 2022-08-17 [facility] 1.2.840.114 [id number] Univers 09:09:16 23:59:00 Encounter Sanjana LOMBARDO 350.1.13.10 [place]y of [place] 4.2.7.2.686 [facility] [id number] [facility] 806 Egnar 2022-05-25 2022-05-25 [facility] [id number] Univers 11:15:00 11:15:00 SANJANA [facility] 2022-05-21 2022-05-21 Emergency [facility] ERT [id number] Univers 19:12:00 19:48:00 JANIYA [facility] 2022-05-21 2022-05-21 Emergency [facility] 1.2.840.114 [id number] Univers 19:12:00 19:48:00 Janiya Parra MUNIRA 350.1.13.10 [place]y of [place] 4.2.7.2.686 [facility] [id number] [address] 2022-03-02 2022-03-02 [facility] [id number] Univers 10:00:00 10:30:21 [facility] 2022-03-02 2022-03-02 Office [facility] 1.2.737.523 [id number] Univers 10:00:00 10:30:21 Visit Sanjana LOMBARDO 350.1.13.10 i ty [facility] 4.2.7.2.686 [facility] PROFESSIO [phone] Ok dical [address] 2022-02-15 2022-02-15 Emergency X SINGER [facility] ERT [id number] Univers 12:37:00 16:57:00 JENNIFER shabazz [facility] 2022-02-15 2022-02-15 Emergency [facility] 1.2.949.449 [id number] Univers 12:37:00 16:57:00 Jennifer LOMBARDO 350.1.13.10 i ty [facility] [place] [id number] [place] [address] Egnar 2020-12-17 2020-12-17 Emergency [facility] 1.2.231.298 [id number] Univers 08:20:00 10:30:00 Johnson Lombardo 350.1.13.10 [place] [id number] [address] 2020-12-17 2020-12-17 Orders Doctor FIORELLA 1.2.840.114 [id number] Univers 00:00:00 00:00:00 Only Unassigned, JOE 350.1.13.10 ity of [place] [facility] 4.2.7.2.686 [place] [id number] [place] [address] Branch 2020-11-29 2020-11-29 Outpatient R EDUARDO [facility] [id number] Univers 15:00:00 15:00:00 RUTH ANN shabazz [facility] 2020-11-23 2020-11-23 Patient Doctor FIORELLA 1.2.840.114 [id number] Univers 00:00:00 00:00:00 Secure Msg Unassigned, JOE 350.1.13.10 ity of [place] [facility] 4.2.7.2.686 [place] [id number] [facility] 019 Branch 2020-11-19 2020-11-19 Emergency [facility] 1.2.840.114 [id number] Univers 10:18:00 12:09:00 Kasey Lombardo 350.1.13.10 [place] [id number] [facility] 084 Branch 2020-06-29 2020-06-29 Emergency [facility] 1.2.335.203 [id number] Univers 19:23:00 22:08:00 Deneen Kaiser Mun[place] 350.1.13.10 ity of [place] 4.2.7.2.686 [facility] [id number] [facility] 084 Branch 2020-06-29 2020-06-29 Emergency [facility] 1.2.045.899 [id number] 19:23:00 22:08:00 Deneen Kaiser [place] 350.1.13.10 [place] 4.2.7.2.686 [place] [id number] 084 2020-05-11 2020-05-11 [facility] 1.2.840.114 [id number] Univers 08:00:00 23:59:00 Encounter Shonna Munira 350.1.13.10 ity of [place] 4.2.7.2.686 [facility] [id number] [facility] 806 Egnar 2020-05-11 2020-05-11 [facility] 1.2.840.114 [id number] 08:00:00 23:59:00 Encounter Shonna Lombardo 350.1.13.[address] [place] [address] [place] [address] [id number] 806 2020-05-11 2020-05-11 Outpatient Hugh SCHULTE [facility] [id number] Univers 00:00:00 00:00:00 SHONNA shabazz [facility] 2020-05-05 2020-05-05 Outpatient Hugh SCHULTE [facility] [id number] Univers 00:00:00 00:00:00 SHONNA shabazz [facility] 2020-04-29 2020-04-29 Office Pool, [facility] Resident UNIVERSIT 1.2.8 40.114 [id number] Univers 09:15:49 10:55:25 Visit Shonna Schulte [facility] 350.1.13.10 ity of [facility] 4.2.7.2.[address] [place] [address] [id number] [facility] 113 Branch 2020-04-29 2020-04-29 Office Pool, [facility] UNIVERSIT 1.2.840.114 [id number] 09:15:49 10:55:25 Visit Resident Ayleen GARAY 350.1.13.10 CLINICS 4.2.7.2.686 [id number] 113 2020-04-29 2020-04-29 Outpatient R [facility] [id number] Univers 09:00:00 09:00:00 ity of [facility] 2020-04-29 2020-04-29 Letter VERONICA SchulteIT 1.2.261.846 [id number] Univers 00:00:00 00:00:00 (Out) [facility] 350.1.13.10 i ty [place] [id number] [facility] 113 Branch Results Test Description Test Time Test Comments Results Result Comments Source COMP. METABOLIC PANEL ([id number]) 2022-02-15 19:41:12 Test Item Value Reference Range Interpretation Comme nts NA (test code = 2051713904) 139 mmol/L 135-145 K (test code = 3597823668) 4.0 mmol/L 3.5-5.0 CL (test code = 6199497448) 104 mmol/L 98-108 CO2 TOTAL (test code = 0377118995) 24 mmol/L 23-31 AGAP (test code = 3991959225) 2-16 BUN (test code = 6497435106) 18 mg/dL 7-23 GLUCOSE (test code = 3841283352) 89 mg/dL 70-110 CREATININE (test code = 0.92 mg/dL 0.50-1.04 6790558847) TOTAL BILI (test code = 0.8 mg/dL 0.1-1.8 2846719305) CALCIUM (test code = 2868924058) 9.6 mg/dL 8.6-10.6 T PROTEIN (test code = 6810224991) 7.8 g/dL 6.3-8.2 ALBUMIN (test code = 6850362868) 4.8 g/dL 3.5-5.0 ALK PHOS (test code = 8022814518) 75 U/L 34-122 ALTv (test code = 1742-6) 55 U/L 5-35 H AST(SGOT) (test code = 0387747590) 60 U/L 13-40 H eGFR (test code = 4888447361) mL/min/1.73m2 SARAH (test code = SARAH) Association of Glomerular Filtration Rate (GFR) and Staging of Kidney Disease* + +-------- + ------+| GFR (mL/min/1.73 m2) ?| With Kidney Damage ?| ?Without Kidney Damage+ +-- + +| ?>90 ?| ?Stage one ?| ? Normal ?+ +------- + -------+| ?60-89 ?| ?Stage two ?| ? Decreased GFR ? + +-------- + ------+| ?30-59 ?| ?Stage three ?| ? Stage three ? + +-------- + ------+| ?15-29 ?| ?Stage four ? | ? Stage four ?+ +------- + -------+| ?<15 (or dialysis) ? ?| ?Stage five ? | ? Stage five ?+ +------- + -------+ *Each stage assumes the associated GFR [...] or abnormalities in imaging tests). Lab Interpretation (test code = Abnormal 12493-6) [facility] WITH [id number] 19:22:46 Test Item Value Reference Range Interpretation Comments WBC (test code = See_Comment [Automated 0504-2) message] The sy stem which generated this result transmitted reference range : 4.30 - 11.10 10*3/?L. The reference range was not used to interpret this result as normal/abnormal . RBC (test code = See_Comment [Automated 777-1) message] The sy stem which generated this result transmitted reference range : 3.93 - 5.25 10*6/?L. The reference range was not used to interpret this result as normal/abnormal . HGB (test code = 13.9 g/dL 11.6-15.0 718-7) HCT (test code = 41.4 % 35.7-45.2 4544-3) MCV (test code = 86.1 fL 80.6-95.5 787-2) MCH (test code = 28.9 pg 25.9-32.8 785-6) MCHC (test code = 33.6 g/dL 31.6-35.1 786-4) RDW-SD (test code = 39.4 fL 39.0-49.9 64863-8) RDW-CV (test code = 12.4 % 12.0-15.5 788-0) PLT (test code = See_Comment [Automated 777-3) message] The sy stem which generated this result transmitted reference range : 166 - 358 10*3/ ?L. The reference r cortes was not used to interpret this result as normal/abnormal . MPV (test code = 12.2 fL 9.5-12.9 83774-6) NRBC/100 WBC (test See_Comment [Automat ed code = 5858583697) message] The system which generated this result transmitted reference range : 0.0 - 10.0 /100 WBCs. The refer ence range was not u sed to interpret th is result as normal/abnormal . NRBC x10^3 (test code See_Comment [Auto mated = 7952452279) message] The s ystem which generated this result transmitted reference range : 10*3/?L. The reference range was not used to interpret this result as normal/abnormal . GRAN MAT (NEUT) % 82.1 % (test code = 770-8) IMM GRAN % (test code 0.40 % = 4570934785) LYMPH % (test code = 12.1 % 736-9) MONO % (test code = 4.8 % 5905-5) EOS % (test code = 0.4 % 713-8) BASO % (test code = 0.2 % 706-2) GRAN MAT x10^3(ANC) 6.85 10*3/uL 1.88-7.09 (test code = 8629955830) IMM GRAN x10^3 (test 0.03 10*3/uL 0.00-0.06 code = 2979433711) LYMPH x10^3 (test code 1.01 10*3/uL 1.32-3.29 L = 731-0) MONO x10^3 (test code 0.40 10*3/uL 0.33-0.92 = 742-7) EOS x10^3 (test code = 0.03 10*3/uL 0.03-0.39 711-2) BASO x10^3 (test code 0.01-0.07 = 704-7) Lab Interpretation Abnormal (test code = 85780-2) [id number] 18:51[facility]00 Test Item Value Reference Range Interpretation Comments On board controls acceptable with present C Line (test code = 3574) POCT PREG LOT # (test code = 3575) [id number] POCT PREG TEST DATE (test 06/17/2023 code = 3576) POCT PREG (test code = 1605) negative Lab Interpretation (test code = Normal 90526-0) [facility]. METABOLIC PANEL (01989)2020-12-17 14:40:25 Test Item Value Reference Range Interpretation Comments NA (test code = 139 mmol/L 135-145 0420126640) K (test code = 4.4 mmol/L 3.5-5.0 0615244414) CL (test code = 104 mmol/L 98-108 6759096950) CO2 TOTAL (test code 27 mmol/L 23-31 = 1314072677) AGAP (test code = 2-16 7945489908) BUN (test code = 15 mg/dL 7-23 3602025960) GLUCOSE (test code = 96 mg/dL 70-110 2459448981) CREATININE (test code 0.95 mg/dL 0.50-1.04 = 8777865311) TOTAL BILI (test code 0.9 mg/dL 0.1-1.1 = 6862865743) CALCIUM (test code = 10.3 mg/dL 8.6-10.6 2151944777) T PROTEIN (test code 8.0 g/dL 6.3-8.2 = 3148890709) ALBUMIN (test code = 4.7 g/dL 3.5-5.0 7678548994) ALK PHOS (test code = 69 U/L 34-122 5968440226) ALTv (test code = 18 U/L 1742-6) AST(SGOT) (test code 30 U/L 13-40 = 0369489772) eGFR (test code = mL/min/1.73m2 9762146102) SARAH (test code = ASRAH) Association of Glomerular Filtration Rate (GFR) and Staging of Kidney Disease* + + +- +| GFR (mL/min/1.73 m2) ?| With Kidney Damage ?| ?Without Kidney Damage+ ------+ ----+ ------+| ?>90 ?| ?Stage one ?| ? Normal ?+ -+ + -+| ?60-89 ?| ?Stage two ?| ? Decreased GFR ? + + +- +| ?30-59 ?| ?Stage three ?| ? Stage three ? + + +- +| ?15-29 ?| ?Stage four ? | ? Stage four ?+ -+ + -+| ?<15 (or dialysis) ? ?| ?Stage five ? | ? Stage five ?+ -+ + -+ *Each stage assumes the associated GFR level [...] or urine or abnormalities in imaging tests). [facility] [id number] 14:24:46 Test Item Value Reference Range Interpretation Comments APTT Patient (test See_Comment [Automat ed code = 3173-2) message] The system which generated this result transmitted reference range : 23 - 38 Seconds . The reference range was not used to interpr et this result as normal/abnormal . SARAH (test code = SARAH) The [facility] patient population mean normal value for aPTT is 30 seconds. Lab Interpretation Normal (test code = 98464-4) [facility] / [id number] 14:22:45 Test Item Value Reference Range Interpretation Comments PROTIME PATIENT (test See_Comment [Auto mated message] code = 5964-2) The system [employer] generated this result transmitted ref erence range: 12.0 - 1 4.7 Seconds. The re ference range was not u sed to interpret this result as normal/abnor mal. INR (test code = 6301-6) Nor mal INR <1.1; Warfarin Therap eutic range 2.0 to 3. 0 or 2.5 to 3.5, dep ending upon the indica tions. Lab Interpretation (test Normal code = 95655-8) [facility] WITH [id number] 14:13:26 Test Item Value Reference Range Interpretation Comments WBC (test code = See_Comment [Automated message] 6690-2) The system [employer] generated this result transmitted ref erence range: 4.30 - 1 1.10 10*3/?L. The re ference range was not u sed to interpret this result as normal/abnor mal. RBC (test code = See_Comment [Automated message] 679-8) The system [employer] generated this result transmitted ref erence range: [...] RDW-SD (test code 40.0 fL 39.0-49.9 = 26997-4) RDW-CV (test code 12.7 % 12.0-15.5 = 788-0) PLT (test code = See_Comment [Automated message] 167-3) The system [employer] generated this result transmitted ref erence range: 166 - 35 8 10*3/?L. The re ference range was not u sed to interpret this result as normal/abnor mal. MPV (test code = 12.0 fL 9.5-12.9 13700-5) NRBC/100 WBC (test See_Comment [Automat ed message] code = 1224019132) The syste m which generated this result transmitted ref erence range: 0.0 - 10 .0 /100 WBCs. The refer ence range was not u sed to interpret this result as normal/abnor mal. NRBC x10^3 (test <0.01 See_Comment [Automated message] code = 0826514425) The syste m which generated this result transmitted ref erence range: 10*3/?L. The reference range was not used to interpr et this result as normal/abnormal . GRAN MAT (NEUT) % 75.6 % (test code = 770-8) IMM GRAN % (test 0.40 % code = 5990396577) LYMPH % (test code 15.0 % = 736-9) MONO % (test code 8.4 % = 5905-5) EOS % (test code = 0.3 % 713-8) BASO % (test code 0.3 % = 706-2) GRAN MAT 6.86 10*3/uL 1.88-7.09 x10^3(ANC) (test code = 3534568922) IMM GRAN x10^3 0.04 10*3/uL 0.00-0.06 (test code = 9289205096) LYMPH x10^3 (test 1.36 10*3/uL 1.32-3.29 code = 731-0) MONO x10^3 (test 0.76 10*3/uL 0.33-0.92 code = 742-7) EOS x10^3 (test 0.03 10*3/uL 0.03-0.39 code = 711-2) BASO x10^3 (test 0.03 10*3/uL 0.01-0.07 code = 704-7) [facility] acute hospital [id number] 13:32:00 Test Item Value Reference Range Interpretation Comments POCT PREG (test code = 1605) negative On board controls acceptable with C present Line (test code = 3574) Lab Interpretation (test code = Normal 65095-4) [facility] ([facility])2020-11-19 16:32:18 Test Item Value Reference Range Interpretation Comments BETA HCG (test <2.39 See_Comment [Automated m essage] code = The system [employer] 2639121142) generated this result transmit roberto reference range : Non- fe male and male patien ts: <5 mIU/mL. The reference range was not used to interpret this result as normal/abnormal . SARAH (test code Gestational Age ? ? = SARAH) ?Range (mIU/mL) 1-10 ?Weeks ?97-05333160-80 Weeks ?90820-37889342-37 Weeks ?7888-94649787-43 Weeks ?1531-884875 Biotin has been reported to cause a negative bias, interpret results relative to patient's use of biotin. [facility] ([facility])2020-11-19 16:32:18 Test Item Value Reference Range Interpretation Comments BETA HCG (test <2.39 See_Comment [Automated m essage] code = The system [employer] 0701767130) generated this result transmit roberto reference range : Non- fe male and male patien ts: <5 mIU/mL. The reference range was not used to interpret this result as normal/abnormal . SARAH (test code Gestational Age ? ? = SARAH) ?Range (mIU/mL) 1-10 ?Weeks ?22-74730894-07 Weeks ?25415-56379234-50 Weeks ?6968-09881190-12 Weeks ?1531-014761 Biotin has been reported to cause a negative bias, interpret results relative to patient's use of biotin. [facility] 16:24:42 Test Item Value Reference Range Interpretation Comments APPEARANCE (test code = Turbid Clear A 5589380942) COLOR (test code = Red Yellow A 2570803817) PH (test code = 4.8-8.0 4092664627) SP GRAVITY (test code = 1.003-1.030 5635136848) GLU U QUAL (test code = 50 mg/dL Normal A 4986676608) BLOOD (test code = 3+ Negative A 0307411942) KETONES (test code = 5 mg/dL Negative A 3490637376) PROTEIN (test code = 100 mg/dL Negative A 2887-8) UROBILIN (test code = Normal Normal 7803656867) BILIRUBIN (test code = Negative Negative 9070195810) NITRITE (test code = Negative Negative 2410535332) LEUK AUNG (test code = Negative Negative 9257440338) RBC/HPF (test code = >182 See_Comment H [Autom ated message] 8070090033) The system [employer] generated this result transmit roberto reference range : 0 - 3 HPF. The refe rence range was not u sed to interpret th is result as normal/abnormal . WBC/HPF (test code = See_Comment [Autom ated message] 8013331791) The system [employer] generated this result transmit roberto reference range : 0 - 5 HPF. The refe rence range was not u sed to interpret th is result as normal/abnormal . BACTERIA (test code = Negative Negative 1055504104) SQ EPITH (test code = HPF 3270028724) Lab Interpretation (test Abnormal code = 98629-7) [facility] 16:24:42 Test Item Value Reference Range Interpretation Comments APPEARANCE (test code = Turbid Clear A 6500568664) COLOR (test code = Red Yellow A 8119020112) PH (test code = 4.8-8.0 4011332613) SP GRAVITY (test code = 1.003-1.030 8475393523) GLU U QUAL (test code = 50 mg/dL Normal A 8438290713) BLOOD (test code = 3+ Negative A 0008627171) KETONES (test code = 5 mg/dL Negative A 3677976211) PROTEIN (test code = 100 mg/dL Negative A 2887-8) UROBILIN (test code = Normal Normal 7625973430) BILIRUBIN (test code = Negative Negative 2177155058) NITRITE (test code = Negative Negative 5826376241) LEUK AUNG (test code = Negative Negative 6254906754) RBC/HPF (test code = >182 See_Comment H [Autom ated message] 2563430677) The system [employer] generated this result transmit roberto reference range : 0 - 3 HPF. The refe rence range was not u sed to interpret th is result as normal/abnormal . WBC/HPF (test code = See_Comment [Autom ated message] 3611335279) The system [employer] generated this result transmit roberto reference range : 0 - 5 HPF. The refe rence range was not u sed to interpret th is result as normal/abnormal . BACTERIA (test code = Negative Negative 0917858082) SQ EPITH (test code = HPF 0851578192) Lab Interpretation (test Abnormal code = 51456-6) [facility]. METABOLIC PANEL (23919)2020-11-19 16:14:00 Test Item Value Reference Range Interpretation Comments NA (test code = 139 mmol/L 135-145 6351411798) K (test code = 4.1 mmol/L 3.5-5.0 5385413761) CL (test code = 105 mmol/L 98-108 3491970613) CO2 TOTAL (test code = 23 mmol/L 23-31 3522888902) AGAP (test code = 2-16 6876933579) BUN (test code = 15 mg/dL 7-23 2185265109) GLUCOSE (test code = 92 mg/dL 70-110 3256835410) CREATININE (test code = 0.96 mg/dL 0.50-1.04 5794584333) TOTAL BILI (test code = 0.6 mg/dL 0.1-1.9 1509478473) CALCIUM (test code = 10.0 mg/dL 8.6-10.6 9248805312) T PROTEIN (test code = 8.6 g/dL 6.3-8.2 H 5518056441) ALBUMIN (test code = 4.9 g/dL 3.5-5.0 0908798636) ALK PHOS (test code = 65 U/L 34-122 1741572043) ALTv (test code = 26 U/L 5-35 1742-6) AST(SGOT) (test code = 45 U/L 13-40 H 0819324001) eGFR (test code = mL/min/1.73m2 6862330329) SARAH (test code = SARAH) Association of [...] tests). Lab Interpretation Abnormal (test code = 97290-0) [facility]. METABOLIC PANEL (22827)2020-11-19 16:14:00 Test Item Value Reference Range Interpretation Comments NA (test code = 139 mmol/L 135-145 7746687705) K (test code = 4.1 mmol/L 3.5-5.0 3085230505) CL (test code = 105 mmol/L 98-108 9003147035) CO2 TOTAL (test code = 23 mmol/L 23-31 6832325410) AGAP (test code = 2-16 6974035986) BUN (test code = 15 mg/dL 7-23 6719678399) GLUCOSE (test code = 92 mg/dL 70-110 8711611564) CREATININE (test code = 0.96 mg/dL 0.50-1.04 9904359934) TOTAL BILI (test code = 0.6 mg/dL 0.1-1.9 8217324217) CALCIUM (test code = 10.0 mg/dL 8.6-10.6 1174755401) T PROTEIN (test code = 8.6 g/dL 6.3-8.2 H 9144666647) ALBUMIN (test code = 4.9 g/dL 3.5-5.0 2733028530) ALK PHOS (test code = 65 U/L 34-122 6344211614) ALTv (test code = 26 U/L 5-35 1742-6) AST(SGOT) (test code = 45 U/L 13-40 H 7142403249) eGFR (test code = mL/min/1.73m2 5867772797) SARAH (test code = SARAH) Association of [...] tests). Lab Interpretation Abnormal (test code = 43268-5) [facility] WITH [id number] 15:58:48 Test Item Value Reference Range Interpretation Comments WBC (test code = See_Comment [Automated 6690-2) message] The sy stem which generated this result transmitted reference range : 4.30 - 11.10 10*3/?L. The reference range was not used to interpret this result as normal/abnormal . RBC (test code = See_Comment [Automated 789-8) message] The sy stem which generated this [...] RDW-SD (test code = 40.7 fL 39.0-49.9 25192-1) RDW-CV (test code = 13.1 % 12.0-15.5 788-0) PLT (test code = See_Comment [Automated 777-3) message] The sy stem which generated this result transmitted reference range : 166 - 358 10*3/ ?L. The reference r cortes was not used to interpret this result as normal/abnormal . MPV (test code = 12.3 fL 9.5-12.9 98259-9) NRBC/100 WBC (test See_Comment [Automat ed code = 2191916019) message] The system which generated this result transmitted reference range : 0.0 - 10.0 /100 WBCs. The refer ence range was not u sed to interpret th is result as normal/abnormal . NRBC x10^3 (test code <0.01 See_Comment [Auto mated = 7633895764) message] The s ystem which generated this result transmitted reference range : 10*3/?L. The reference range was not used to interpret this result as normal/abnormal . GRAN MAT (NEUT) % 63.0 % (test code = 770-8) IMM GRAN % (test code 0.20 % = 7440500630) LYMPH % (test code = 26.0 % 736-9) MONO % (test code = 8.3 % 5905-5) EOS % (test code = 1.9 % 713-8) BASO % (test code = 0.6 % 706-2) GRAN MAT x10^3(ANC) 3.05 10*3/uL 1.88-7.09 (test code = 8259577786) IMM GRAN x10^3 (test <0.03 0.00-0.06 code = 7930572097) LYMPH x10^3 (test code 1.26 10*3/uL 1.32-3.29 L = 731-0) MONO x10^3 (test code 0.40 10*3/uL 0.33-0.92 = 742-7) EOS x10^3 (test code = 0.09 10*3/uL 0.03-0.39 711-2) BASO x10^3 (test code 0.03 10*3/uL 0.01-0.07 = 704-7) Lab Interpretation Abnormal (test code = 39758-0) [facility] WITH [id number] 15:58:48 Test Item Value Reference Range Interpretation Comments WBC (test code = See_Comment [Automated 0304-2) message] The sy stem which generated this result transmitted reference range : 4.30 - 11.10 10*3/?L. The reference range was not used to interpret this result as normal/abnormal . RBC (test code = See_Comment [Automated 092-8) message] The sy stem which generated this [...] RDW-SD (test code = 40.7 fL 39.0-49.9 76797-3) RDW-CV (test code = 13.1 % 12.0-15.5 788-0) PLT (test code = See_Comment [Automated 777-3) message] The sy stem which generated this result transmitted reference range : 166 - 358 10*3/ ?L. The reference r cortes was not used to interpret this result as normal/abnormal . MPV (test code = 12.3 fL 9.5-12.9 56894-7) NRBC/100 WBC (test See_Comment [Automat ed code = [id number]) message] The system which generated this result transmitted reference range : 0.0 - 10.0 /100 WBCs. The refer ence range was not u sed to interpret th is result as normal/abnormal . NRBC x10^3 (test code <0.01 See_Comment [Auto mated = [id number]) message] The s ystem which generated this result transmitted reference range : 10*3/?L. The reference range was not used to interpret this result as normal/abnormal . GRAN MAT (NEUT) % 63.0 % (test code = 770-8) IMM GRAN % (test code 0.20 % = [id number]) LYMPH % (test code = 26.0 % 736-9) MONO % (test code = 8.3 % 5905-5) EOS % (test code = 1.9 % 713-8) BASO % (test code = 0.6 % 706-2) GRAN MAT x10^3(ANC) 3.05 10*3/uL 1.88-7.09 (test code = [id number]) IMM GRAN x10^3 (test <0.03 0.00-0.06 code = 2314352702) LYMPH x10^3 (test code 1.26 10*3/uL 1.32-3.29 L = 731-0) MONO x10^3 (test code 0.40 10*3/uL 0.33-0.92 = 742-7) EOS x10^3 (test code = 0.09 10*3/uL 0.03-0.39 711-2) BASO x10^3 (test code 0.03 10*3/uL 0.01-0.07 = 704-7) Lab Interpretation Abnormal (test code = 42680-3) General acute hospital [id number] 15:30:00 Test Item Value Reference Range Interpretation Comments POCT PREG (test code = 1605) negative On board controls acceptable with present C Line (test code = 3574) POCT PREG LOT # (test code = 3575) [id number] POCT PREG TEST DATE (test 03/18/2022 code = 3576) Lab Interpretation (test code = Normal 23808-8) General acute hospital [id number] 15:30:00 Test Item Value Reference Range Interpretation Comments POCT PREG (test code = 1605) negative On board controls acceptable with present C Line (test code = 3574) POCT PREG LOT # (test code = 3575) [id number] POCT PREG TEST DATE (test 03/18/2022 code = 3576) Lab Interpretation (test code = Normal 98257-3) [facility] STREP SCREEN FOR GROUP [id number] 02:14:58 Test Item Value Reference Range Interpretation Comments Streptococcus pyogenes (group A) Negative Negative antigen (test code = 29846-9) Lab Interpretation (test code = Normal 66811-4) [facility] Test Item Value Reference Range Interpretation Comments APPEARANCE (test code = Clear Clear 9669690165) COLOR (test code = Yellow Yellow 5888900151) PH (test code = 4.8-8.0 0700362023) SP GRAVITY (test code = 1.003-1.030 7800911390) GLU U QUAL (test code = Normal Normal 4100975451) BLOOD (test code = Negative Negative 3637435237) KETONES (test code = 20 mg/dL Negative A 8973124433) PROTEIN (test code = Negative Negative 2887-8) UROBILIN (test code = Normal Normal 7904462993) BILIRUBIN (test code = Negative Negative 6596141525) NITRITE (test code = Positive Negative A 0552569477) LEUK AUNG (test code = Negative Negative 7551400753) RBC/HPF (test code = See_Comment [Autom ated message] 6852641493) The system [employer] generated this result transmitted ref erence range: 0 - 3 HP F. The reference range was not used to int erpret this result as normal/abnormal . WBC/HPF (test code = See_Comment [Autom ated message] 8587306862) The system [employer] generated this result transmitted ref erence range: 0 - 5 HP F. The reference range was not used to int erpret this result as normal/abnormal . BACTERIA (test code = Few Negative A 5529387743) MUCOUS (test code = Slight Negative LPF A 8133346764) SQ EPITH (test code = <1 HPF 3560813643) Lab Interpretation (test Abnormal code = 81524-5) [facility] NOW RAPID TESTING)2020-06-30 02:03:56 Test Item Value Reference Range Interpretation Comments SARS-CoV-2 Rapid ID NOW Positive Not Detected A (test code = 85555-1) SARAH (test code = SARAH) ID NOW COVID-19 Assay is an isothermal nucleic acid amplification test intended for the qualitative detection of nucleic acid from SARS-CoV-2 viral RNA in nasopharyngeal (OVERLAY OPERATOR) specimens. It is used under Emergency Use [...] indicated. Lab Interpretation Abnormal (test code = 45081-4) [facility] [id number] 01:46:00 Test Item Value Reference Range Interpretation Comments POCT PREG (test code = 1605) negative On board controls acceptable present with C Line (test code = 3574) POCT PREG LOT # (test code = [id number]) POCT PREG TEST DATE 2022-02-15 (test code = 3576) Lab Interpretation (test code = Normal 57237-6) [facility] COMPLETE WITH [id number] 15:17:47HISTORY: History of right ovarian cyst. Follow-up. [...] seen in bothovaries consistent with physiologic changes. CONCLUS IONS: 1. Normal size uterus with no focal myometrial lesions seen.2. No endometrial hyperplasia. IUDis in good position within the uterus.3. Small cysts in the ovaries, consistent with physiological changes. [facility], Radiant Results Inft User - 05/11/2020 9:18 AM CSTHISTORY: History of right ovarian cyst. Follow-up.TECHNIQUE: Both transabdominal and transvaginal pelvic ultrasound studieswere completed by the technologist.FINDINGS: Uterus is elongated shaped, measures approximately 8.4 x 3.2 x5.3 cm insize with homogeneous echo texture of the myometrium. Endometrialecho complex is 5.6 mm. IUD is in good position within the uterus. No freefluid in the cul-de-sac. Right ovary is 2.9 x 1.8 x 1.8 cm (4.79 ml) and left ovary is 3.1 x 2.1 x2.8 cm (9.62 ml). Multiple 14 mm or smaller size follicles are seen in bothovaries consistent with physiologic changes.CONCLUSIONS: 1. Normal size uterus with no focal myometrial lesions seen.2. No endometrial hyperplasia. IUD is in good position within the uterus.3. Small cysts in the ovaries, consistent with physiological changes.[facility]"
--- NOTE | 2023-02-04 08:27 | ER ---
Nurse's Notes [facility] Name: Yokasta Duncan Age: 27 yrs Sex: Female : 1995 Arrival Date: 02/04/2023 Time: 07:18 Bed 15 Private MD: Diagnosis: Tendonitis Presentation: 02/04 07:34 Chief complaint: Left 5th finger pain x 3 days. Denies injury. Coronavirus screen: At this time, the client does not indicate any symptoms associated with coronavirus-19. Ebola Screen: No symptoms or risks identified at this time. Initial Sepsis Screen: Does the patient meet any 2 criteria? No. Patient's initial sepsis screen is negative. Does the patient have a suspected source of infection? No. Patient's initial sepsis screen is negative. Risk Assessment: Do you want to hurt yourself or someone else? Patient reports no desire to harm self or others. Onset of symptoms was February 01, 2023. 07:34 Method Of Arrival: Ambulatory 07:34 Acuity: ASHLY 4 hb Triage Assessment: 07:35 General: Appears in no apparent distress. Behavior is calm, cooperative. Pain: Pain hb currently is 8 out of 10 on a pain scale. EENT: No signs and/or symptoms were reported regarding the EENT system. Neuro: Level of Consciousness is awake, alert, obeys commands, Oriented to person, place, time, situation. Cardiovascular: Patient's skin is warm and dry. Respiratory: Respiratory effort is even, unlabored, Respiratory pattern is regular, symmetrical. GI: No signs and/or symptoms were reported involving the gastrointestinal system. : No signs and/or symptoms were reported regarding the genitourinary system. Derm: Skin is pink, warm \T\ dry. Musculoskeletal: Reports left 5th finger pain. 08:42 Injury Description: sprain to finger. tm6 Historical: - Allergies: 07:36 No Known Allergies; hb - Home Meds: 07:36 None [Active]; hb - PMHx: 07:35 PID; hb - PSHx: 07:36 None; hb - Immunization history:: Adult Immunizations up to date. - Social history:: Smoking status: Patient denies any tobacco usage or history of. Screenin:36 [facility] ED Fall Risk Assessment (Adult) Score/Fall Risk Level 0 - 2 = Low Risk hb Oriented to surroundings, Maintained a safe environment. Abuse screen: Denies threats or abuse. Denies injuries from another. Nutritional screening: No deficits noted. Tuberculosis screening: No symptoms or risk factors identified. Assessment: 07:36 General: See triage assessment . hb 08:40 Neuro: Level of Consciousness is awake, alert, obeys commands, Oriented to person, tm6 place, time, situation. Cardiovascular: Capillary refill < 3 seconds Patient's skin is warm and dry. Respiratory: Airway is patent Respiratory effort is even, unlabored, Respiratory pattern is regular, symmetrical. GI: Abdomen is flat, non-distended. : No signs and/or symptoms were reported regarding the genitourinary system. EENT: No signs and/or symptoms were reported regarding the EENT system. Derm: No signs and/or symptoms reported regarding the dermatologic system. Musculoskeletal: No signs and/or symptoms reported regarding the musculoskeletal system. Vital Signs: 07:35 BP 130 / 88; Pulse 59; Resp 16; Temp 99.1(O); Pulse Ox 100% on R/A; Weight 62.6 kg; hb Height 5 ft. 4 in. ; Pain 8/10; 07:35 Body Mass Index 23.69 (62.60 kg, 162.56 cm) hb 07:35 Pain Scale: Adult hb ED Course: 07:19 Patient arrived in ED. rg4 07:30 [facility]C [facility] snw 07:30 Vik Soto MD is Attending Physician. snw 07:35 Triage completed. hb 07:35 Arm band placed on. hb 07:36 Patient has correct armband on for positive identification. Provided Education on: hb tests, results. 07:36 No provider procedures requiring assistance completed. Patient did not have IV access hb during this emergency room visit. 08:25 Hand Left 3 View XRAY In Process Unspecified. EDMS 08:32 Left little finger immobilized with splint and tape. ds4 Administered Medications: 08:35 Drug: Ketorolac IM 30 mg IM once Route: IM; Site: right deltoid; ld1 Medication: 07:36 VIS not applicable for this client. hb Outcome: 08:26 Discharge ordered by . snw 08:40 Discharged to home ambulatory, tm6 08:40 Condition: stable 08:40 Discharge instructions given to patient, Instructed on discharge instructions, follow up and referral plans. medication usage, Demonstrated understanding of instructions, follow-up care, medications, Prescriptions given X 08:42 Patient left the ED. tm6 Signatures: Dispatcher [employer] EDMS Leidy Gage, FRACTIONATING STILL OPERATOR-C FRACTIONATING STILL OPERATOR-Csnw Fernie Davison ds4 Olga Curiel, MYESHA RN Jeny Alas rg4 Brenna Fontanez RN RN ld1 João Caballero RN RN tm6 Corrections: (The following items were deleted from the chart) 07:36 07:35 Pulse 59bpm; Resp 16bpm; Pulse Ox 100% RA; Pain 8/10, Adult; hb hb
--- NOTE | 2023-02-04 08:27 | EDPHYS ---
Physician Documentation [facility] Name: Yokasta Duncan Age: 27 yrs Sex: Female : 1995 Arrival Date: 02/04/2023 Time: 07:18 Bed 15 Private MD: ED Physician Vik Soto HPI: 02/04 07:42 This 27 yrs old Female presents to ER via Ambulatory with complaints of Finger Injury. snw 07:42 The patient or guardian reports decreased range of motion, pain, swelling, tenderness. snw The complaints affect the MCP of left little finger. Context: The problem was sustained at an unknown location, resulted from an unknown cause. Onset: The symptoms/episode began/occurred 4 day(s) ago, and became persistent. Associated signs and symptoms: The patient has no apparent associated signs or symptoms. The patient has not experienced similar symptoms in the past. It is unknown whether or not the patient has recently seen a physician. Historical: - Allergies: 07:36 No Known Allergies; hb - Home Meds: 07:36 None [Active]; hb - PMHx: 07:35 PID; hb - PSHx: 07:36 None; hb - Immunization history:: Adult Immunizations up to date. - Social history:: Smoking status: Patient denies any tobacco usage or history of. ROS: 07:37 Constitutional: Negative for fever, chills, and weight loss, Eyes: Negative for injury, snw pain, redness, and discharge, ENT: Negative for injury, pain, and discharge, Neck: Negative for injury, pain, and swelling, Cardiovascular: Negative for chest pain, palpitations, and edema, Respiratory: Negative for shortness of breath, cough, wheezing, and pleuritic chest pain, Abdomen/GI: Negative for abdominal pain, nausea, vomiting, diarrhea, and constipation, Back: Negative for injury and pain, : Negative for injury, bleeding, discharge, and swelling, Skin: Negative for injury, rash, and discoloration, Neuro: Negative for headache, weakness, numbness, tingling, and seizure, Psych: Negative for depression, anxiety, suicide ideation, homicidal ideation, and hallucinations, 07:37 MS/extremity: Positive for injury or acute deformity, decreased range of motion, swelling, tenderness, of the dorsal aspect of proximal phalanx of left little finger, Exam: 07:37 Constitutional: This is a well developed, well nourished patient who is awake, alert, snw and in no acute distress. Head/Face: Normocephalic, atraumatic. Eyes: Pupils equal round and reactive to light, extra-ocular motions intact. Lids and lashes normal. Conjunctiva and sclera are non-icteric and not injected. Cornea within normal limits. Periorbital areas with no swelling, redness, or edema. ENT: Nares patent. No nasal discharge, no septal abnormalities noted. Tympanic membranes are normal and external auditory canals are clear. Oropharynx with no redness, swelling, or masses, exudates, or evidence of obstruction, uvula midline. Mucous membranes moist. Neck: Trachea midline, no thyromegaly or masses palpated, and no cervical lymphadenopathy. Supple, full range of motion without nuchal rigidity, or vertebral point tenderness. No Meningismus. Chest/axilla: Normal chest wall appearance and motion. Nontender with no deformity. No lesions are appreciated. Cardiovascular: Regular rate and rhythm with a normal S1 and S2. No gallops, murmurs, or rubs. Normal PMI, no JVD. No pulse deficits. Respiratory: Lungs have equal breath sounds bilaterally, clear to auscultation and percussion. No rales, rhonchi or wheezes noted. No increased work of breathing, no retractions or nasal flaring. Abdomen/GI: Soft, non-tender, with normal bowel sounds. No distension or tympany. No guarding or rebound. No evidence of tenderness throughout. Back: No spinal tenderness. No costovertebral tenderness. Full range of motion. Skin: Warm, dry with normal turgor. Normal color with no rashes, no lesions, and no evidence of cellulitis. MS/ Extremity: Pulses equal, no cyanosis. Neurovascular intact. Full, normal range of motion. tenderness to MPJ at left 5th, decreased ROM 2nd to pain, mild edema Neuro: Awake and alert, GCS 15, oriented to person, place, time, and situation. Cranial nerves II-XII grossly intact. Motor strength 5/5 in all extremities. Sensory grossly intact. Cerebellar exam normal. Normal gait. Psych: Awake, alert, with orientation to person, place and time. Behavior, mood, and affect are within normal limits. Vital Signs: 07:35 BP 130 / 88; Pulse 59; Resp 16; Temp 99.1(O); Pulse Ox 100% on R/A; Weight 62.6 kg; hb Height 5 ft. 4 in. ; Pain 8/10; 07:35 Body Mass Index 23.69 (62.60 kg, 162.56 cm) hb 07:35 Pain Scale: Adult hb MDM: 07:37 Patient medically screened. snw 07:43 Differential diagnosis: closed fracture, contusion, tendonitis. Data reviewed: vital snw signs, nurses notes, radiologic studies, plain films. I considered the following discharge prescriptions or medication management in the emergency department Medications were administered in the Emergency Department. See MAY. 08:29 Independent interpretation of the following test(s) in the Emergency Department X-Ray: snw My interpretation is no acute fx/dislocation. small opacification noted at medial aspect of mpj of 5th on one x-ray view. 02/04 07:37 Order name: Hand Left 3 View XRAY; Complete Time: 11:28 snw 02/04 08:24 Order name: Finger Splint; Complete Time: 08:32 snw Administered Medications: 08:35 Drug: Ketorolac IM 30 mg IM once Route: IM; Site: right deltoid; ld1 Disposition Summary: 02/04/23 08:26 Discharge Ordered Notes: Location: Home snw Condition: Stable snw Diagnosis - Tendonitis snw Followup: snw - With: Emergency Department - When: As needed - Reason: Worsening of condition Followup: snw - With: Private Physician - When: 2 - 3 days - Reason: Recheck today's complaints, Continuance of care, Re-evaluation by your physician Discharge Instructions: - Discharge Summary Sheet snw - Joint Pain snw - Cast or Splint Care, Adult snw - Hand Pain snw Forms: - Medication Reconciliation Form snw - Thank You Letter snw - Antibiotic Education snw - Prescription Opioid Use snw - Patient Portal Instructions snw - Leadership Thank You Letter snw Prescriptions: - Diclofenac Sodium 75 mg Oral Tablet Sustained Release - take 1 tablet ORAL route 2 times per day; 30 tablet; Refills: 0, Product snw Selection Permitted Signatures: Dispatcher [employer] Leidy Guadarrama FNP-C HOSPITAL SOCIAL WORKER-Csnw Olga Curiel RN RN hb Fontanez, Brenna, RN RN ld1
--- NOTE | 2023-02-04 08:37 | RAD REPORT ---
EXAM DESCRIPTION: RAD - Hand Left 3 View - 02/04/2023 8:23 am CLINICAL HISTORY: PAIN COMPARISON: <Comparisons> FINDINGS: Mild soft tissue swelling is present affecting the fifth finger. No acute fracture or disl ocation seen.
[2023-02-04 08:47] VITALS: BP 130/88; TEMP 99.1; O2SAT 100
[2023-02-04] MEDS ORDERED: KETOROLAC 30 MG/ML INJ ONE (08:48)
== END 2023-02-04 08:42 | disposition home or self-care (01) ==
LOC: ER 07:18
DX: M77.9 Enthesopathy, unspecified (principal)
CPT/HCPCS: 96372; 99284